=== PATIENT | female | born 1955 | race Caucasian/White ===

== ENCOUNTER 2017-07-28 10:59 | Emergency (ER) | payer OTHER ==
[~2017-07-28] VITALS: Ht 162.6 cm; Wt 151.9 kg
[~2017-07-28 10:59] MED LIST: ALBUTEROL SULF8.5 GM IH; ALLOPURINOL100 MG PO; ASPIRIN EC325 MG PO; BENADRYL25 MG PO; COUMADIN6 MG PO; CYMBALTA60 MG PO; DIPHENHYDRAMINE50 M1 PO; DSS100 MG PO; DULERA 200 MCG/13 GM IH; FERROUS SULFAT140 MG PO; GABAPENTIN300 MG PO; GABAPENTIN600 MG PO; KLOR-CON M2020 MEQ PO; LASIX40 MG PO; LEVOTHROID300 MCG PO; LEVOTHYROXINE200 MCG PO; LISINOPRIL20 MG PO; LOVENOX80 MG SUB-Q; METOLAZONE10 MG PO; NAPROXEN500 MG PO; NEURONTIN600 MG PO; NORCO 5-325 TA1 EACH PO; PACERONE200 MG PO; PRAVASTATIN SOD80 MG PO; PRILOSEC20 MG PO; REGLAN10 MG PO; SEPTRA DS TABL1 EACH PO; TOPROL XL25 MG PO; TRAZODONE HCL100 MG PO
[2017-07-28] MEDS ORDERED: ALLOPURINOL300 MG PO (11:28)
[2017-07-28] MEDS ORDERED: GLIPIZIDE XL5 MG PO (11:28)
[2017-07-28] MEDS ORDERED: AMITRIPTYLINE H25 MG PO (11:29)
== END 2017-07-28 12:02 | disposition home or self-care (01) ==
LOC: ED 10:59
DX: S83.91XA Sprain of unspecified site of right knee, initial encounter (principal); I11.0 Hypertensive heart disease with heart failure; I50.9 Heart failure, unspecified; Z87.891 Personal history of nicotine dependence; Z90.49 Acquired absence of other specified parts of digestive tract; Z98.51 Tubal ligation status; W10.9XXA Fall (on) (from) unspecified stairs and steps, initial encounter
CPT/HCPCS: 73560; 99283

== ENCOUNTER 2021-05-03 13:15 | Inpatient (IN) | payer OTHER, MEDICARE ==
[~2021-05-03] VITALS: Ht 162.6 cm; Wt 130.6 kg
[~2021-05-03 13:15] MED LIST changes: +ALLOPURINOL300 MG PO; +AMITRIPTYLINE H25 MG PO; -ASPIRIN EC325 MG PO; +BAYER CHEWABLE81 MG PO; +GLIPIZIDE XL5 MG PO
--- NOTE | 2021-05-03 20:40 | NUR ---
CALLED AND ASKED TO ORDER A CBC 1/2 AN HOUR TO 1 HOUR AFTER 1ST UNIT PRBC'S IS IN. THIS RN VERIFIED THIS ORDER.
--- NOTE | 2021-05-03 21:00 | NUR ---
SENIOR ADMINISTRATIVE ASSISTANT NOTE. pt ARRIVED TO FLOOR FROM ED VIA ED STRETCHER. pt STAND PIVOT FROM STRETCHER TO BED, STEADY ON FEET. pt ORIENTED TO ROOM, CALL LIGHT IN REACH. LIN ACE ALSO IN ROOM COLLECTING VS. TIAGO COLEMAN IN ROOM REVIEWING HOME MEDS. NO ADDITIONAL NEEDS VERBALIZED AT THIS TIME.
--- NOTE | 2021-05-03 22:21 | NUR ---
PATIENT NEEDED NO SLIDING SCALE INSULIN COVERAGE. PATIENT IS JUST WANTING TO GO TO SLEEP AND SIGNIFICANT OTHER KEEPS TRYING TO PUT PATIENT'S CPAP ON WHILE THIS RN IS TRYING TO ASK QUESTIONS. PATIENT CAME UP ON 2L/NC AND SATS WERE IN THE MID 90'S AND SATS REMAIN IN THE MID TO HIGH 90'S ON CPAP WITH NO O2.DR. FOWLER INFORMED THAT PRBC'S HAVE INFUSED AND CBC IS BEING DRAWN. THIS RN ASKED IF HE WANTED TO HAVE PATIENT TAKE ANY OF HER OWN PM MEDS TONIGHT, AND DOES NOT WANT TO GIVE ANY OF THE PATIENT'S REGULAR MEDS TONIGHT, BUT HAVE PHARMACY DO THE MED REC IN THE MORNING AND DOSING. PATIENT'S SIGNIFICANT OTHER LEAVING FOR THE NIGHT. PATIENT WANTS TO SLEEP. CALL LIGHT IS IN REACH.
--- NOTE | 2021-05-04 00:10 | NUR ---
PATIENT RESTING QUIETLY IN SEMI-FOWLERS POSITION ON CPAP. RESPIRATIONS ARE REGULAR AND EVEN AND PATIENT'S EYES ARE CLOSED. CALL LIGHT IS IN REACH.
[2021-05-04] MEDS ORDERED: JANTOVEN4 MG PO (00:28)
[2021-05-04] MEDS ORDERED: JANTOVEN5 MG PO (00:30)
[2021-05-04] MEDS ORDERED: ALL DAY ALLERGY10 M3 PO (00:32)
[2021-05-04] MEDS ORDERED: LIOTHYRONINE SO5 MCG PO (00:37)
[2021-05-04] MEDS ORDERED: LEVOTHYROXINE137 MCG PO (00:39)
[2021-05-04] MEDS ORDERED: OMEPRAZOLE20 MG PO (00:39)
[2021-05-04] MEDS ORDERED: LIPITOR10 MG PO (00:40)
[2021-05-04] MEDS ORDERED: CENTRUM SILVER1 EAC5 PO (00:41)
[2021-05-04] MEDS ORDERED: B-121000 MC2 PO (00:44)
[2021-05-04] MEDS ORDERED: CYMBALTA60 MG PO (00:45)
[2021-05-04] MEDS ORDERED: CELECOXIB200 MG PO (00:47)
[2021-05-04] MEDS ORDERED: FOLIC ACID1 MG PO (00:47)
[2021-05-04] MEDS ORDERED: MELATONIN10 M2 PO (00:48)
--- NOTE | 2021-05-04 02:05 | NUR ---
VITAL TAKEN AT THIS TIME, PT DENIES NEED TO VOID AT THIS TIME
--- NOTE | 2021-05-04 02:16 | NUR ---
Home CPAP on patient and I have been in twice tonight to adjust mask for leaks.
--- NOTE | 2021-05-04 03:59 | NUR ---
PATIENT RESTING IN SEMI-FOWLERS POSITION, RESPIRATIONS ARE REGULAR AND EVEN, AND EYES ARE CLOSED. CALL LIGHT IS IN REACH.
--- NOTE | 2021-05-04 06:13 | NUR ---
CALLED TO INFORM HIM PATIENT HAD NOT VOIDED SINCE SHE LEFT THE ER, THAT SHE HAS NO URGE TO VOID, AND THAT HER BLADDER SCAN SHOWED 288MLS OF URINE. WANTS PATIENT TO OBSERVED FOR NOW AND WILL EVALUATE LATER THIS MORNING.
--- NOTE | 2021-05-04 07:05 | NUR ---
Report received from Julio César ORDOÑEZ. Pt resting in bed with eyes closed, respirations even and unlabored. No apparent needs at this time, call light in reach, will continue plan of care.
--- NOTE | 2021-05-04 08:15 | NUR ---
CBG checked, 127, no SS insulin provided. Pt resting in bed, states feeling tired this morning and nervous to get out of bed without "working with PT first". Assessment complete, visualized bruises as much as possible with patient unable to roll side to side at this time. Breakfast ordered, no other needs at this time. Call light in reach.
--- NOTE | 2021-05-04 08:29 | NUR ---
Patient just recieved breakfast. Patient would like an independent bed bath. Bed bath wipes will be provided. The patient would like to eat breakfast first. Call light is in reach and there are no other requests at this time.
[2021-05-04] MEDS ORDERED: NITROFURANTOIN100 M1 PO (09:12)
[2021-05-04] MEDS ORDERED: FUROSEMIDE80 MG PO (09:19)
[2021-05-04] MEDS ORDERED: AMITRIPTYLINE H50 MG PO (09:31)
--- NOTE | 2021-05-04 10:15 | NUR ---
Pt up to BSC, weak with heavy 2P pivot transfer. Full skin assessment complete at this time, photo consent obtained and pictures placed in chart of large bruise on R hip/buttock, small skin tear to R buttock (allevyn placed), small skin tear to mid back (allevyn placed). Pt back to bed, eating breakfast with visitor at bedside, attentive to patient and engaged in care. LIN Trejo in room, no other needs from this RN at this time
--- NOTE | 2021-05-04 10:18 | NUR ---
Patient voided 350 ml. RN talked with patient and got some information. Vitals, I&Os are complete. Patient is visiting with friend. Patient would like coffee and this will be provided. There are no other requests and the call light is in reach.
--- NOTE | 2021-05-04 11:33 | NUR ---
medications reconciled using RX records and patient interview. Patient is chronically anticoagulated with warfarin with an INR goal range 2.5-3.5
--- NOTE | 2021-05-04 12:00 | NUR ---
IN ROOM TO DO PATIENTS BLOOD SUGAR. PATIENT SITTING IN CHAIR WAITING FOR LUNCH. CALL LIGHT IN REACH. NO FURTHER NEEDS AT THIS TIME.
--- NOTE | 2021-05-04 13:36 | NUR ---
Vitals, I&Os are complete. Patient did a requested independent bed bath. Patient is using chapstick, saying her lips are dry, but he is drinking some water. She said she lost her appitite because all she feels is pain. Patient has not voided or had a BM in about 3 and a 1/2 hours. Patient is asking about pain meds. There are no other requests. Call light is in reach.
--- NOTE | 2021-05-04 15:45 | NUR ---
Pt requests PRN medication for 8/10 generalized and back pain, 5mg oxycodone administered. Discussed with patient her care goals, including pain control, improved physical strength and mobility, and possible continuation of ABX due to past UTI. Pt is agreeable to POC, all questions answered. MD notified regarding this concerns, new orders received.
--- NOTE | 2021-05-04 17:20 | NUR ---
Scheduled medications administered, lidocaine patch applied to lower back for pain. Pt states having little appetite and denies wanting anything at this time, encouraged to eat with ABX and pain pills to avoid nausea. Pt agrees. Friend at bedside, engaged in care, attentive to patient and knowledgeable about patient's medications and condition. No other needs at this time, call light in reach.
--- NOTE | 2021-05-04 18:00 | NUR ---
PATIENT SITTING UP IN BED WATCHING TV, FRIEND IN ROOM. VITALS AND I&O'S CHARTED. CALL LIGHT IN REACH. NO FURTHER NEEDS AT THIS TIME.
--- NOTE | 2021-05-04 19:02 | EKG ---
[facility] [address] [facility] [address] [place], [place] [address] Signed Normal sinus rhythm Nonspecific intraventricular block Nonspecific T wave abnormality Abnormal ECG No previous ECGs available Confirmed by NICOLA FOWLER MD ([id number]) on 05/04/2021 7:02:35 PM Electronically Signed By: NICOLA FOWLER MD 05/04/211901 PATIENT NAME: MERLINCHERELLE Karthik Electrocardiogram DATE OF : 51 PHYSICIAN: NICOLA FOWLER MD REPORT #: [id number] REPORT IS CONFIDENTIAL AND NOT TO BE RELEASED WITHOUT AUTHORIZATION
--- NOTE | 2021-05-04 19:30 | NUR ---
PATIENT SITTING IN BED WATCHING TV. PATIENT'S FRIEND IS IN THE ROOM VISITING. PATIENT HAS NO CARE NEEDS AT THIS TIME. REPORT GIVEN TO THIS RN BY TIAGO ANDRES.
--- NOTE | 2021-05-04 20:30 | NUR ---
PATIENT IS HAVING 04/18 RIGHT HIP AND LOWER BACK PAIN. 10MG PO OXYCODONE GIVEN. PATIENT'S FRIEND KATI HELPED THIS RN PULL THE PATIENT UP IN BED. PM MEDS GIVEN. WATER GLASS FULL. VS STABLE. NO OTHER CARE NEEDS AT THIS TIME. CALL LIGHT IS IN REACH.
--- NOTE | 2021-05-04 23:35 | NUR ---
IN TO CHECK ON PT, PT DENIES NEED TO VOID AT THIS TIME, RN AWARE
--- NOTE | 2021-05-04 23:59 | NUR ---
PT ADMITTED TO ROOM 125 FROM ED VIA W/C, CARRIED IN MOTHERS ARMS. CALM, QUIET. ED TELE IN PLACE, RESP 22, PULSE 148, SATS 95% ROOM AIR. SLIGHT MOTTLING OF HIPS/LEGS NOTED, MOTHER STATED, 'ITS ALWAYS LIKE THAT'
--- NOTE | 2021-05-05 00:32 | NUR ---
PATIENT'S RT HIP AND LOW BACK PAIN HAS RETURNED TO 8/10 AND 10MG PO OXYCODONE GIVEN. PATIENT HAS NOT VOIDED YET THIS SHIFT AND BLADDER SCAN SHOWS 257MLS AND PATIENT DOES NOT FEEL THE NEED TO VOID. PATIENT HAS NO OTHER CARE NEEDS AT THIS TIME. CALL LIGHT IS IN REACH.
--- NOTE | 2021-05-05 00:50 | NUR ---
pT UP TO BEDSIDE AND BACK TO BED COMMODE 2PA AND FWW, THIS RN AND LIN ACE ASSISTING. PATIENT PULLED UP IN BED AND POSITIONED TO COMFORT. PATIENT VOIDED 300MLS. LIGHTS WERE TURNED DOWN AND CALL LIGHT IS IN REACH.
--- NOTE | 2021-05-05 02:39 | NUR ---
PATIENT RESTING QUIETLY IN SEMI-FOWLERS POSITION, RESPIRATIONS ARE REGULAR AND EVEN AND CALL LIGHT IS IN REACH.
--- NOTE | 2021-05-05 04:30 | NUR ---
PATIENT RESTING QUIETLY IN SEMI-FOWLERS POSITION, RESPIRATIONS ARE REGULAR AND EVEN, PATIENT REMAINS OFF CPAP BY HER CHOICE, EYES ARE CLOSED, CALL LIGHT IS IN REACH.
--- NOTE | 2021-05-05 06:21 | NUR ---
PATIENT HAVING 4/10 RIGHT HIP AND BACK PAIN AND WANTED PAIN MEDICATION AND WAS GIVEN 10MG PO OXYCODONE. AM ASSESSMENT COMPLETE. PATIENT INFORMED THIS RN SHE SLEPT PRETTY WELL EVEN THOUGH SHE DID NOT USE HER CPAP LAST NIGHT AND SLEPT SITTING UP IN BED INSTEAD. PATIENT HAVING MORE TROUBLE COMPLETING HER THOUGHTS THIS AM JUST LIKE YESTERDAY. AND CAN'T COMPLETE HER SENTENCES. PATIENT CURRENTLY PUTTING SEALANT ON HER DENTURES AND TRYING TO PUT THEM IN FOR THE MORNING. PATIENT'S CALL LIGHT IS IN REACH AND SHE HAS NO OTHER CARE NEEDS AT THIS TIME.
--- NOTE | 2021-05-05 08:53 | NUR ---
Scheduled medications administered, assessment complete. Pt drowsy this am, awakens to voice but quickly returns to sleep. States pain is 4-5/10 at this time, new lidocaine patch applied, discussed with patient importance of both pain control and also remaining alert. Pt agreeable to this. Allevyn to R hip and mid back C/D/I, pt states no needs at this time, breakfast in room. Call light in reach.
--- NOTE | 2021-05-05 10:30 | NUR ---
This RN heard patient calling out for help, entered room to find her gripping bedside rails and gasping that she "couldn't breathe", immediately checked spo2, 92%, and placed on 2L NC o2 for patient comfort. VSS, lung sounds clear, pt sitting upright and states no chest pain or discomfort. Pt then denies any issues, noted her skin to be cool and somewhat moist so CBG checked and WNL. TIAGO Ruiz in room to assist, Dr Vogel notified.
--- NOTE | 2021-05-05 10:39 | NUR ---
CALLED TO REPORT CHANGE IN PATIENT LOC, PT VERY SOMNOLENT ALL MORNING. SHE WOKE AND SCREAMED FOR HELP, BLAINE PRIMARY RN INTO ROOM, REQUESTED ASSISTANCE FROM THIS RN. V/S STABLE, PT SHORT OF BREATH 91% OXYGEN SATURATION ON ROOM ARE, PLACED ON 2L OXYGEN 96% OXYGEN SATURATION ON 2L N.C., BLOOD SUGAR CHAECK AT BEDSIDE 152. PT REPORTS NO CHEST PAIN SHE REPORTED NAUSEA AND WAS GIVEN ZOFRAN PRN. SKIN COOL AND MOIST.
--- NOTE | 2021-05-05 11:15 | NUR ---
IN ROOM WITH PT TO GET PATIENT UP TO BSC. PATIENT UP, 2PA FWW. PATIENT THEN TO CHAIR AFTER BSC, 2PA FWW. PATIENT TOLERATED IT WELL . LINENS CHANGED. ADRIANO CARE DONE. CALL LIGHT IN REACH. NO FURTHER NEEDS AT THIS TIME. RN DID VITALS.
--- NOTE | 2021-05-05 11:20 | NUR ---
Pt continues to be somnolent, VSS. Monitoring low urine output frequency, pt denies urge to void with several attempts to have her use commode. Pt did not eat breakfast as she states was too tired at this time. No needs currently. Call light in reach, will continue to monitor
--- NOTE | 2021-05-05 13:45 | NUR ---
Pt's medications administered, pt sitting up in chair and awakens to voice to take pill, tolerates well. Friend Chelsi at bedside, updated regarding pt condition and this morning's events, discussed plan of care and Chelsi states patient is more confused and drowsy than baseline. MD notified of this and new orders received
--- NOTE | 2021-05-05 16:51 | NUR ---
Scheduled medications administered, pt still up in chair with friend Chesli at bedside. Pt still somnolent, but able to remain awake to answer several questions. Reports pain to be 5/10, PRN tylenol administered. Dinner has been ordered. Discussed plan for evening and pt would like to remain in chair until evening VS and return to bed then. Call light in reach, no other needs.
--- NOTE | 2021-05-05 18:25 | NUR ---
PATIENT SITTING UP IN BED WATCHING TV, VISITOR IN ROOM. VITALS AND I&O'S CHARTED. CALL LIGHT IN REACH. NO FURTHER NEEDS AT THIS TIME.
--- NOTE | 2021-05-05 18:56 | NUR ---
Pt meets urine criteria at this time with moderate incontinent void, encouraged to take in PO food and fluid as she has low intake and has to be strongly encouraged to use the commode.
--- NOTE | 2021-05-05 19:49 | NUR ---
PATIENT SITTING IN BED WATCHING TV. PATIENT HAS NO CURRENT CARE NEEDS AND HER CALL LIGHT IS IN REACH.
--- NOTE | 2021-05-05 20:27 | NUR ---
PATIENT HAVING 4/10 RT HIP AND BACK PAIN. TYLENOL GIVEN. PATIENT'S DENTURES OUT TO SOAK. LIGHTS TURNED DOWN AT HER REQUEST. CALL LIGHT IS IN REACH. ASSESSMENT COMPLETE.
--- NOTE | 2021-05-05 22:30 | NUR ---
PATIENT CONTINUES TO WATCH TV AT THIS TIME FROM BED. PATIENT DENIES THE NEED FOR ANY CARES AT THIS TIME. CALL LIGHT IS IN REACH.
--- NOTE | 2021-05-06 00:27 | NUR ---
PATIENT DOZING IN BED WATCHING TV. PATIENT DENIES THE NEED FOR ANYTHING AT THIS TIME. CALL LIGHT IS IN REACH.
--- NOTE | 2021-05-06 01:39 | NUR ---
ASSISTED PATIENT IN PUTTING ON HER CPAP MACHINE SO SHE COULD GO TO SLEEP. PATIENT'S LIGHTS TURNED DOWN AND CALL LIGHT IS IN REACH.
--- NOTE | 2021-05-06 01:50 | NUR ---
CALLED AND INFORMED HIM PATIENT HAS NOT VOIDED TONIGHT ON THIS SHIFT. INFORMED THIS RN TO "JUST WATCH HER FOR NOW." NO NEW ORDERS GIVEN AND CALL LIGHT IS IN PATIENT'S REACH.
--- NOTE | 2021-05-06 04:38 | NUR ---
PATIENT UP TO THE BEDSIDE COMMODE AND BACK TO BED WITH 2PA AND FWW. PATIENT HAD A SMALL BM AND VOIDED 500MLS. PATIENT SLEPT ABOUT 2 HOURS ON HER CPAP AND INFORMED THIS RN SHE HAD A, "GOOD NAP". PATIENT GETTING HER DENTURES IN WITH HELP FROM LIN PETERSON. CALL LIGT IS IN REACH.
--- NOTE | 2021-05-06 04:46 | NUR ---
2pa TO BEDSIDE COMMODE USING WALKER. PATIENT IS BACK IN BED. V/S AND I&O DONE AND RECORDED. CALL LIGHT WITHIN REACH.
--- NOTE | 2021-05-06 06:05 | NUR ---
PATIENT'S AM MEDS GIVEN AND PATIENT HAD NO OTHER NEEDS. CALL LIGHT IS IN REACH.
--- NOTE | 2021-05-06 07:10 | NUR ---
Report received from Julio César ORDOÑEZ. Pt resting in bed with eyes closed, even and unlabored respirations. No needs apparent at this time, call light in reach. Will continue plan of care.
--- NOTE | 2021-05-06 08:47 | NUR ---
PATIENT UP TO CHAIR, 2PA FWW. COULD HAVE TRAMSFERED WITH 1PA BUT PATIENT FELT UNCOMFORTABLE WITH JUST ONE PERSON. FRESH ICE WATER GIVEN. CALL LIGHT IN REACH. NO FURTHER NEEDS AT THIS TIME.
--- NOTE | 2021-05-06 09:50 | NUR ---
Scheduled medications and PRN tylenol administered for pt's back pain. New lidocaine patch applied. Pt is alert and oriented, improved significantly from day before (05/05). Pt prepares to work with physical therapist and walks in hallway. Skin, bruises visualized, allevyns over skin tears C/D/I, skin condition unchanged at this time.
--- NOTE | 2021-05-06 10:32 | NUR ---
PATIENT SITTING IN CHAIR WATCHING TV, VISITOR IN ROOM. PATIENT WANTS TO SHOWER IN A LITTLE BIT AND WANTS VISITOR TO HELP HER. WILL SET BATHROOM UP FOR SHOWER. CALL LIGHT IN REACH. NO FURTHER NEEDS AT THIS TIME.
[2021-05-06] MEDS ORDERED: AMOXICILLIN500 MG PO (12:11)
[2021-05-06] MEDS ORDERED: KLOR-CON M2020 MEQ PO (12:12)
[2021-05-06] MEDS ORDERED: FUROSEMIDE80 MG PO (12:12)
[2021-05-06] MEDS ORDERED: MELATONIN10 M2 PO (12:13)
--- NOTE | 2021-05-06 12:30 | NUR ---
Rounded on patient who is sitting up in chair, states no needs at this time. Her friend Chelsi is here to provide ride home when discharged. A+O, states no pain, call light in reach.
--- NOTE | 2021-05-06 14:00 | NUR ---
Discharge teaching provided to patient and her friend Chelsi who both verbalize understanding and have no questions. Vital signs stable, alert and oriented, and IV removed WNL. All belongings returned to patient, discharged via wheelchair with her friend Chelsi to provide ride home.
== END 2021-05-06 14:22 | disposition home or self-care (01) | DRG 604 ==
LOC: ED 13:15 → MS 19:05
PROVIDERS: ADMIT Internal Medicine; ATTEND Internal Medicine
PROC: 30233N1 Transfusion of Nonautologous Red Blood Cells into Peripheral Vein, Percutaneous Approach (ICD-10-PCS; principal; 2021-05-03)
DX: S70.01XA Contusion of right hip, initial encounter (principal); K72.00 Acute and subacute hepatic failure without coma; S22.089A Unspecified fracture of T11-T12 vertebra, initial encounter for closed fracture; D62 Acute posthemorrhagic anemia; I13.0 Hypertensive heart and chronic kidney disease with heart failure and stage 1 through stage 4 chronic kidney disease, or unspecified chronic kidney disease; I50.32 Chronic diastolic (congestive) heart failure; N39.0 Urinary tract infection, site not specified; N17.9 Acute kidney failure, unspecified; W18.30XA Fall on same level, unspecified, initial encounter; I27.20 Pulmonary hypertension, unspecified; M79.7 Fibromyalgia; G47.33 Obstructive sleep apnea (adult) (pediatric); E11.42 Type 2 diabetes mellitus with diabetic polyneuropathy; R29.6 Repeated falls; E78.5 Hyperlipidemia, unspecified; E11.22 Type 2 diabetes mellitus with diabetic chronic kidney disease; K76.0 Fatty (change of) liver, not elsewhere classified; Z20.822 Contact with and (suspected) exposure to COVID-19; B95.2 Enterococcus as the cause of diseases classified elsewhere; B96.20 Unspecified Escherichia coli [E. coli] as the cause of diseases classified elsewhere; K21.9 Gastro-esophageal reflux disease without esophagitis; G89.4 Chronic pain syndrome; N18.9 Chronic kidney disease, unspecified; R41.0 Disorientation, unspecified; R26.89 Other abnormalities of gait and mobility; T43.015A Adverse effect of tricyclic antidepressants, initial encounter; E03.9 Hypothyroidism, unspecified; Y92.239 Unspecified place in hospital as the place of occurrence of the external cause; Z79.01 Long term (current) use of anticoagulants; Z95.2 Presence of prosthetic heart valve; Z87.891 Personal history of nicotine dependence; Z90.49 Acquired absence of other specified parts of digestive tract; Z98.890 Other specified postprocedural states; Z98.51 Tubal ligation status; Z79.84 Long term (current) use of oral hypoglycemic drugs; Z79.82 Long term (current) use of aspirin; Z79.899 Other long term (current) drug therapy; Z91.041 Radiographic dye allergy status
CPT/HCPCS: 36430; 70450; 71045; 74176; 74177; 80053; 80500; 81001; 82553; 83735; 84484; 85025; 85610; 85730; 86850; 86900; 86901; 86922; 93005; 93010; 97110; 97162; 99285-25; A9270; J2270; J2405; J7030; P9016; U0003

== ENCOUNTER 2022-03-03 17:54 | Inpatient (IN) | payer MEDICARE, OTHER ==
[~2022-03-03] VITALS: Ht 162.6 cm; Wt 109.1 kg
[~2022-03-03 17:54] MED LIST changes: +ALL DAY ALLERGY10 M3 PO; +AMITRIPTYLINE H50 MG PO; +AMOXICILLIN500 MG PO; +B-121000 MC2 PO; +CELECOXIB200 MG PO; +CENTRUM SILVER1 EAC5 PO; +FOLIC ACID1 MG PO; +FUROSEMIDE80 MG PO; +JANTOVEN4 MG PO; +JANTOVEN5 MG PO; +LEVOTHYROXINE137 MCG PO; +LIOTHYRONINE SO5 MCG PO; +LIPITOR10 MG PO; +LOVENOX40 MG/0.4; +MELATONIN10 M2 PO; +NITROFURANTOIN100 M1 PO; +OMEPRAZOLE20 MG PO
--- NOTE | 2022-03-03 20:40 | NUR ---
PT TO FLOOR FROM ED VIA STRETCHER WITH HOUSE SUP RN. PT ALERT AND ORIENTED. ABLE TO TRANSFER SELF FROM STRETCHER TO BSC TO VOID 400 ML CLEAR YELLOW URINE. ABLE TO DO OWN ADRIANO CARE. BACK TO BED. DENIES SOB WITH ACTIVITY. DOES REPORTS RIGHT SIDE CHEST PAIN WITH ACTIVITY AND DEEP BREATHING. SpO2 LOW 80'S ON RA AFTER ACTIVITY. 2L/NC PLACED. SpO2 100% AFTER A FEW MINUTES OF RECOVERY. OXYGEN REMOVED PER REQUEST. FRIEND IN ROOM TO BRING PERSONAL WALKER AND CPAP MACHING. FEED PREPARATION OPERATOR IN ROOM TO DO ADMISSION.
[2022-03-03] MEDS ORDERED: SOAANZ40 MG PO (20:52)
--- NOTE | 2022-03-03 22:00 | NUR ---
ADMISSION ASSESSMENT COMPLETE. SCHEDULED MEDS ADMIN PER EMAR. PT DENIES PAIN, NAUSEA, OR SOB. PT ON RA. SpO2 95%. RESPIRATIONS EVEN. EDEMA NOTED BLE. PT WITH MULTIPLE BRUISES OF VARIOUS SIZES AND STAGES OF HEALING DUE TO CHRONIC COUMADIN USE. REDDENED PANNUS AREA NOTED, PT STATES TREATING AT HOME WITH NYSTATIN. NIO PLACED FOR HOSPITAL EQUIVALENT. PT HUNGRY AND THIRSTY. DISCUSSED ORDERED DIET AND FLUID RESTRICTION. PT RECEPTIVE. JELLO AND ICE WATER PROVIDED. PT ORIENTED TO ROOM AND NURSE CALL LIGHT. DENIES QUESTIONS OR CONCERNS. CALL LIGHT IN REACH.
--- NOTE | 2022-03-04 00:06 | NUR ---
call LIGHT ANSWERED. PATIENT GOT UP TO USE THE BATHROOM. 1SBA. OWN WALKER. PATIENT VOIDED 450ML SLIGHTLY CONCENTRATED. PATIENT IS BACK IN BED. FEW ICE CHIPS PROVIDED PER PRIMARY RN. FEW BLANKETS TAKEN OFF PATIENT STATED SHE WAS FREEZING AWHILE AGO BUT NOW SHE IS WARM. NO OTHER NEEDS AT THIS TIME. CALL LIGHT AND SIDE TABLE CLOSED BY.
--- NOTE | 2022-03-04 02:04 | NUR ---
VS AND I&O COMPLETE. SpO2 MID 80'S ON RA. PT NOT WEARING CPAP "IT IS TOO UMCOMFORTABLE TONIGHT" 2L/NC PLACED. SpO2 MID 90'S. SCHEDULED MEDS ADMIN. PT UP TO BR WITH SBA AND PERSONAL WALKER TO VOID. GAIT STEADY. ABLE TO DO OWN ADRIANO CARE. BACK TO BED, SANTI WELL. REPORTS RIGHT SIDE CHEST PAIN IS BECOMING MORE STERNAL. DENIES RADIATING PAIN INTO ARMS OR JAW. DENIES SOB. REQUESTING MORE WATER, EDUCATION PROVIDED. PT RECEPTIVE. DENIES FURTHER NEEDS. CALL LIGHT IN REACH.
--- NOTE | 2022-03-04 03:58 | NUR ---
ALL LIGHT ANSWERED. PT UP TO BR WITH FWW AND SBA TO VOID AND SOAK DENTURES. BACK TO BED. REPORTS PAIN IN RIGHT SIDE CHEST/STERNUM 04/09. DENIES SOB. DENIES RADIATING PAIN. REPORTS IT FEELS LIKE THE SAME PAIN THAT SHE CAME TO THE ED WITH THAT SHE HAS NOT HAD RELIEF FROM. DR. FOWLER NOTIFIED. NEW TELEPHONE ORDERS RECEIVED FROR PAIN CONTROL MEASURES. VERIFIED WITH READ BACK METHOD. IN TO UPDATE PT. PT REPORTS PAIN MAY BE RELATED TO A FALL SHE HAD APPROX TWO WEEKS AGO AND/OR HER FIBROMYALGIA. OFFERED HEAT/COLD, PT REFUSED. PRN FOR PAIN ADMIN PER EMAR. NO FURTHER NEEDS. CALL LIGHT IN REACH.
--- NOTE | 2022-03-04 06:53 | NUR ---
VS AND I&O COMPLETE. DAILY WEIGHT OBTAINED. PT REPORTS RIGHT CHEST/STERNAL PAIN IMPROVED AFTER PRN ADMIN. FEW ICE CHIPS PROVIDED. PT SITTING ON THE SIDE OF THE BED MAKING PERSONAL CALLS. NO FURTHER NEEDS. CALL LIGHT IN REACH.
--- NOTE | 2022-03-04 07:10 | NUR ---
bedside report from Regine RN, pt sitting up, denies needs, call light in reach.
[2022-03-04] MEDS ORDERED: TORSEMIDE20 MG PO (07:25)
[2022-03-04] MEDS ORDERED: LEVOTHYROXINE150 MCG PO (07:26)
[2022-03-04] MEDS ORDERED: AMITRIPTYLINE100 MG PO (07:27)
--- NOTE | 2022-03-04 08:57 | NUR ---
in with pt, home cytomel 10 mg given this am from home. ericka from dc plan in at this time. visitor in room.
--- NOTE | 2022-03-04 09:00 | NUR ---
Spoke with pt and her friend Chelsi. Pt lives alone and denies needs. Pt lives in 1 story home with a ramp. She uses walker and a CPAP. She denies needs and plans on dc to home when she is feeling better. Per nursing staff pt is a heavy drinker. Home on dc.
--- NOTE | 2022-03-04 10:39 | NUR ---
PATIENT SITTING UP IN EDGE OF BED, VISITOR IN ROOM. VITALS AND I&O'S CHARTED. PATIENT SAID SHE WOULD DECIDE LATER ON A SHOWER. CALL LIGHT IN REACH. NO FURTHER NEEDS AT THIS TIME.
--- NOTE | 2022-03-04 11:06 | NUR ---
discussed chf printed education and low sodium. echo complete at bedside. po meds kcl and mg given and educated.
--- NOTE | 2022-03-04 12:55 | NUR ---
pt back to bed after xray in dept. call light in reach.
--- NOTE | 2022-03-04 13:09 | NUR ---
pt sitting up at bedside - following water fluid restriction. pain pill po given for chest pain - that continues after fall at home.
--- NOTE | 2022-03-04 13:33 | NUR ---
PT ALERT, ORIENTED AND VISITING WITH A FRIEND KATI. PT WAS ALITTLE CHILLED, TURNED UP TEMP IN RM. GAVE BLESSING AND G.POST. WILL FOLLOW
--- NOTE | 2022-03-04 19:15 | NUR ---
bedside report to suleiman woodson, cont. fluid restrictions - i/o complete.
--- NOTE | 2022-03-04 19:34 | NUR ---
REPORT RECEIVED FROM DAY SHIFT RN. PT LYING IN BED ALERT AND ORIENTED. DENIES NEEDS AT THIS TIME. WHITE BOARD UPDATED. CALL LIGHT IN REACH.
--- NOTE | 2022-03-04 21:35 | NUR ---
PT UP TO BR WITH SBA AND FWW TO VOID. AT SINK FOR PM CARES. BACK TO BED, SANTI WELL. DENIES SOB. PRN FOR PAIN GIVEN FOR 6/10 RIGHT SIDE CHEST PAIN. PT DENIES NAUSEA. SCHEDULED MEDS ADMIN PER EMAR. EVENING ASSESSMENT COMPLETE. ASSISTED TO PLACE HOME CPAP. PT DENIES QUESTIONS OR CONCERNS. CALL LIGHT IN REACH.
--- NOTE | 2022-03-04 23:21 | NUR ---
PT RESTING IN BED WITH EYES CLOSED. CPAP IN PLACE. RESPIRATIONS EVEN. CALL LIGHT IN REACH.
--- NOTE | 2022-03-05 01:49 | NUR ---
PT RESTING WITH CPAP ON. SPOT CHECK Spo2 93%. HR 80'S. ASSISTED PT WITH BLANKETS. NO FURTHER NEEDS.
--- NOTE | 2022-03-05 04:30 | NUR ---
PT RESTING IN BED WITH EYES CLOSED. CPAP IN PLACE. RESPIRATIONS EVEN. CALL LIGHT IN REACH.
--- NOTE | 2022-03-05 06:03 | NUR ---
PT UP TO BR WITH SBA AND FWW TO VOID 300 ML CONCENTRATED URINE. AT SINK FOR AM CARES. DAILY WEIGHT OBTAINED. BACK TO BED, SANTI WELL. PT DENIES SOB WITH AMB. GAIT STEADY. VS AND I&O COMPLETE. SCHEDULED MEDS ADMIN PER EMAR. PRN ADMIN FOR RIGHT SIDE CHEST PAIN. PT DENIES FURTHER NEEDS. CALL LIGHT IN REACH.
--- NOTE | 2022-03-05 08:13 | NUR ---
MORNING ASSESSMENT COMPLETE. PT SITTING AT EDGE OF BED, EATING BREAKFAST. LUNG SOUNDS CLEAR, DIM AT BASES. 2+ PITTING EDEMA TO BILATERAL LOWER EXT. STATES PAIN IN RIBS IS 5/10, THOUGH DENIES NEED FOR INTERVENTION AT THIS TIME. DENIES FURTHER NEEDS AT THIS TIME. CALL LIGHT WITHIN REACH.
--- NOTE | 2022-03-05 09:24 | NUR ---
PT IN RECLINER, DENIES NEEDS AT THIS TIME. CALL LIGHT IN REACH.
--- NOTE | 2022-03-05 09:52 | NUR ---
PT C/O 03/09 RIGHT RIB PAIN, PRN OXYCODONE GIVEN. DENIES FURTHER NEEDS AT THIS TIME. CALL LIGHT IN REACH.
--- NOTE | 2022-03-05 10:40 | NUR ---
Spoke with Yohana. States she is feeling better today. Cont. with some shoulder, chest, and rib pain. Over all she is feeling better.
--- NOTE | 2022-03-05 10:40 | NUR ---
PT ALERT, ORIENTED AND SITTING IN CHAIR USING [employer] PT SLEPT WELL, SHARED HOW QUIET IT IS AT NIGHT. VERY PLEASED WITH CARE. GAVE BLESSING, WILL FOLLOW NEEDED
--- NOTE | 2022-03-05 11:41 | NUR ---
PT SITTING UP IN RECLINER, VISITING WITH FAMILY. CALL LIGHT IN REACH.
--- NOTE | 2022-03-05 11:43 | EKG ---
[facility] [address] [place] [address] Signed Sinus rhythm with 1st degree AV block Nonspecific intraventricular block Minimal voltage criteria for LVH, may be normal variant ( [place] product ) Cannot rule out Anterior infarct , age undetermined Abnormal ECG When compared with ECG of 08-JAN-2022 10:37, T wave inversion now evident in Lateral leads Confirmed by NICOLA FOWLER MD ([id number]) on 03/05/2022 11:43:11 AM Electronically Signed By: NICOLA FOWLER MD 03/05/22 1143 PATIENT NAME: CHERELLE BOYER Electrocardiogram DATE OF : 51 PHYSICIAN: NICOLA FOWLER MD REPORT #: [id number] REPORT IS CONFIDENTIAL AND NOT TO BE RELEASED WITHOUT AUTHORIZATION
--- NOTE | 2022-03-05 12:02 | NUR ---
PT EATING LUNCH, STATES PAIN HAS IMPROVED TO 2/10. DENIES FURTHER NEEDS AT THIS TIME. CALL LIGHT IN REACH.
--- NOTE | 2022-03-05 14:06 | NUR ---
PT SITTIN GUP IN BED, PT IN ROOM. CLEAR, DIM LUNG SOUNDS, 2+ PITTING EDEMA TO BILAT LOWER EXT. DENIES NEEDS AT THIS TIME. CALL LIGHT IN REACH.
--- NOTE | 2022-03-05 16:04 | NUR ---
ASSISTED PT TO RESTROOM AND BACK TO SITTING ON EDGE OF BED. PT REQUESTED [place] FOR LEFT SHOULDER AND RIBS, ADMINISTERED. PT DENIES FURTHER NEEDS AT THIS TIME. CALL LIGHT IN REACH.
--- NOTE | 2022-03-05 17:37 | NUR ---
PT C/O 03/09 RIB PAIN, PRN OXYCODONE GIVEN. PT DENIES FURTHER NEEDS AT THIS TIME. CALL LIGHT IN REACH.
--- NOTE | 2022-03-05 19:22 | NUR ---
Pt sitting edge of bed, on room air, no c/o pain, pleasant and coop, aware of fluid restriction.
--- NOTE | 2022-03-05 20:11 | NUR ---
PT ON ROOM AIR, HOME CPAP AT BEDSIDE, SL LAC PATENT, SBA/ REPOSITIONS SELF IN BED, AWARE OF FLUID RESTRICTION, COOPERATIVE. PLEASANT AND COOPERATIVE CALL LIGTH AT HANDS REACH
--- NOTE | 2022-03-05 20:22 | NUR ---
lungs crackles at bases, aortic valve murmur present. red under panus and groin area, desenx applied. edema 1+ LE up to outer thigh areas bilat. moves extremities well, tender. elevated,
--- NOTE | 2022-03-05 23:17 | NUR ---
USING CPAP, NO DISTRESS, NO C/O PAIN. RT WAS IN ROOM EARLIER ASSESSING HOME CPAP FOR USE
--- NOTE | 2022-03-06 01:20 | NUR ---
pt awakes easily,, no distress, using CPAP, call light at hands reach
--- NOTE | 2022-03-06 03:20 | NUR ---
awakes easily, no c/o pain at this time. on room air. turns and repositions self in bed
--- NOTE | 2022-03-06 06:31 | NUR ---
uP TO BR SBA, VOIDED LIGHT BARON COLORED URINE. BACK TO BED, TOLERATED WELL, NO C/O PAIN. TOOK MEDS W/O PROBLEMS. AWARE OF FLUID RESTRICTION, TOLERATING WELL AND WITHN LIMITS. SL PATENT. LUNGS DIM AT BASIS, ON ROOM AIR. DAILY STANDING WEIGHT 116.4KG. SLEPT THIS SHIFT, USED HOME CPAP, PLEASANT AND COOP. NO C/O EMESIS
--- NOTE | 2022-03-06 08:27 | NUR ---
MORNING ASSESSMENT COMPLETE. 2+ PITTING EDEMA NOTED FROM HIPS TO ANKLES, BILAT LOWER EXT. O2 SAT 97% RA, CLEAR DIM LUNG SOUNDS. PT DENIES NEEDS AT THIS TIME, CALL LIGHT IN REACH.
--- NOTE | 2022-03-06 09:46 | NUR ---
PT SITTING ON EDGE OF BED, C/O 04/09 LEFT SHOULDER AND RIB PAIN WITH MOVEMENT, GIVEN 5MG OXYCODONE. PT DENIES FURTHER NEEDS AT THIS TIME. CALL LIGHT IN REACH.
--- NOTE | 2022-03-06 10:00 | NUR ---
Spoke with Yohana. She states she is feeling better today. Cont. with concerns for falls. Has education packet and is familiar with STOP LIGHT protocol. Pt states she has a scale in the home. She states she goes to OP 2 x per week for PT and they were getting ready to start OT for her. Let her know I will pass this on to Dr. Vogel as she would like to continue. She denies other needs. PT was in the room and had just finished sitting exercises with her. Pt states she was a little sob, but not as much as when she walkes with PT>
--- NOTE | 2022-03-06 10:42 | NUR ---
PT SITTING IN RECLINER, STATES PAIN HAS IMPROVED SINCE PRN MEDICATION. DENIES NEEDS AT THIS TIME. CALL LIGHT IN REACH.
--- NOTE | 2022-03-06 11:44 | NUR ---
PT SITTING IN RECLINER, DENIES NEEDS AT THIS TIME. CALL LIGHT IN REACH.
--- NOTE | 2022-03-06 12:59 | NUR ---
PT SITTING IN RECLINER, VISITOR IN ROOM. DENIES NEEDS AT THIS TIME. CALL LIGHT IN REACH.
--- NOTE | 2022-03-06 13:06 | NUR ---
PT ALERT, ORIENTED AND UP WITH FWW HEADED TO BR. SAID SHE WAS FEELING BETTER PLANS TO STAY ONE MORE DAY. SEEMS PLEASED WITH CARE. GAVE ENCOURAGEMENT AND BLESSING. WILL FOLLOW
--- NOTE | 2022-03-06 13:52 | NUR ---
PT SITTING UP IN RECLINER, VISITOR AT BEDSIDE, ASSISTED WITH SHOWER. PT DENIES FURTHER NEEDS AT THIS TIME. CALL LIGHT WITHIN REACH.
--- NOTE | 2022-03-06 17:04 | NUR ---
PT SITTING IN RECLINER VISITING. DENIES NEEDS AT THIS TIME. CALL LEESA SANTIAGO.
--- NOTE | 2022-03-06 19:40 | NUR ---
bedside report from samanthaeriee rn, pt denies needs, call light in reach.
--- NOTE | 2022-03-06 22:15 | NUR ---
pt adjusting cpap mask - seal difficult - pt taking it off for a break. denies other needs. call light in reach
--- NOTE | 2022-03-07 00:43 | NUR ---
pt resting eyes closed, resp even, call light in reach.
--- NOTE | 2022-03-07 04:58 | NUR ---
pt had uneventful night, cpap occasionally - po pain med and asper cream at bedtime, poss dc to home today.
--- NOTE | 2022-03-07 05:17 | NUR ---
in for pt vitals, sleepy, reports feeling better. Lab in for am draw.
--- NOTE | 2022-03-07 07:21 | NUR ---
REPORT RECEIVED FROM TIAGO TOBIN. PT RESTING IN BED ON BACK. PT REPORTS 3/10 PAIN IN RIGHT SIDE AND SHOULDER THAT IS "NOT THAT BAD." PT DENIES NEED FOR PAIN MEDICATION AT THIS TIME. NO ADDITIONAL REQUESTS OR COMPLAINTS. CALL LIGHT WITHIN REACH. BED RAILS UP.
--- NOTE | 2022-03-07 09:13 | NUR ---
MORNING ASSESSMENT AND MEDICATION DUE. PT SITTING ON EDGE OF BED, FINISHED WITH BREAKFAST. PT REPORTS 3/10 PAIN IN RIGHT SHOULDER/ARM AND 2/10 PAIN IN STERNUM OF CHEST. PT ALERT AND ORIENTED TO ALL. STRENGTH WNL ALTHOUGH PT RECALLS MULTIPLS FALLS RECENTLY. PT PRAISES HER EFFORTS WITH PHYSICAL THERAPY YESTERDAY. PT CONTINUES TO REPORTS BASELINE NUBMNESS AND TINGLING IN HANDS AND FEET, UNCHANGED. LUNG SOUNDS CLEAR IN ALL LOBES. OXYGEN SATURATION ABOVE 94% ON ROOM AIR. PT DENEIS FEELINGS OF SHORTNESS OF BREATH. HEART MURMUR CONTINUES. PT UPDATED ON HER INR LEVEL. SWELLING IN BLE IMPROVING, NOW +1 PITTING EDEMA FROM KNEES TO ANKLES. NO PITTING EDEMA NOTED IN ABOMDEN OR UPPER LEGS. ABDOMEN SOFT. MICONAZOLE POWDER APPLIED UNDER PANNUS, REDNESS MINIMAL. BRUISES CONTINUE TO RIGHT UPPER AND LOWER ARM. YELLOWING NOTED AROUND EDGES. ASPER CREAM APPLIED PER PT REQUEST. PT DENIES ADDITONAL REQUESTS OR COMPLAINTS. CALL LIGHT WITHIN REACH. BED RAILS UP.
--- NOTE | 2022-03-07 10:01 | NUR ---
THIS RN TO ROOM TO CHECK ON PT. NEW MEDICATION ORDERS DUE. PT REMAINS UP TO CHAIR WORKING WITH PHYSICAL THERAPY. PT DENEIS PAIN AND NAUSEA. MEDICAITON GIVEN (SEE MAR). PT UPDATED ON PLAN OF CARE. NO ADDITIONAL NEEDS AT THIS TIME. CALL LIGHT WITHIN REACH.
--- NOTE | 2022-03-07 10:43 | NUR ---
THIS RN TO ROOM TO CHECK ON PT. PT RESTING IN BED WATCHING TV. PT REPORTS HER PAIN IS WELL CONTROLLED. HAT EMPITED OF 325ML OF CONCENTRATED YELLOW URINE. PT DENIES ADDITIONAL REQUESTS OR COMPLAINTS. CALL LIGHT WITHIN REACH. BED RAILS UP.
--- NOTE | 2022-03-07 11:55 | NUR ---
THIS RN TO ROOM TO CHECK ON PT. PT SITTING ON EDGE OF BED EATING LUNCH. PT REPORTS 2/10 PAIN IN RIGHT ARM/SHOULDER. PT DENIES CHEST PAIN BUT STATES "WHEN I MOVE MY ARM I CAN FEEL IT IN MY CHEST A BIT LIKE THE TWO ARE CONNECTED." PT REPORTS "PEEING A LOT." PT DENIES DIZZINESS BUT REPORTS FEELIGN "REALLY TIRED TODAY." PT UPDATED ON PLAN OF CARE. PT DENIES ADDITONAL REQUESTS OR COMPLAINTS. CALL LIGHT WITHIN REACH.
--- NOTE | 2022-03-07 12:14 | NUR ---
PT SITTING IN CHAIR, MENTIONED SHE HAD HOPED TO DC TODAY, BUT DR FOWLER FEELS HER LABS SHOW SOME CONCERN. SHE WILL TRUST STAFF JUDGEMENT. AGAIN EXPRESSED SHE IS PLEASED WITH CARE. GAVE BLESSING AND WILL FOLLOW
--- NOTE | 2022-03-07 13:07 | NUR ---
AFTERNOON ASSESSMENT DUE. THIS RN TO ROOM TO CHECK ON PT. PT CONTINUES RESTING ON LEFT SIDE IN BED. PT REPORTS PAIN IS IMPROVING IN LLQ OF ABDOMEN AND "WAS BETTER WITH REST BUT THEN WORSE WITH MY BOWEL MOVEMENT." PT REPORTS 3/10 PAIN IN LEFT LOWER QUADRANT. PT DENIES NEED FOR ADDTIONAL PAIN MEDICATION AT THIS TIME. PT DENIES NASUEA. PT ALERT AND OREINTED TO ALL. HEART TONES REGULAR. LUNG SOUNDS CLEAR. NUMBNESS TO LLE CONTINUES PER PT BASELINE. +1 PITTING EDEMA NOTED IN LLE WELL. PT STATES "YEAH MY LEFT LEG IS USUALY ABOUT AN INCH BEGGER THAN THE RIGHT." ABDOMEN REMAINS SOFT. MILDY DISTENDED PER PT. BOWEL TONES ACTIVE BUT HYPOACTIVE IN LLQ. ABDOMEN REMAINS TENDER IN LLQ WITH PALPATION. PT VOIDING LARGE AMOUNTS OF CLEAR YELLOW URINE. VITAL SIGNS STABLE. REDNESS NOTED UNDER PANNUS. BARRIER CREAM APPLIED. ICE WATER PROVIDED. PT UPDATED ON PLAN OF CARE. NO ADDITONAL REQUESTS OR COMPLAINTS. CALL LIGHT WITHIN REACH. AT BEDSIDE.
--- NOTE | 2022-03-07 13:49 | NUR ---
AFTERNOON ASSESSMENT AND MEDICATION DUE. PT RESTING IN BED. PT REPORTS 2/10 CHEST/STERNAL PAIN "SOMETIMES BUT IT'S NOT REALLY BOTHERING ME." PT REPORTS CLIMBING 4/10 RIGHT SHOUDLER/ARM PAIN. PT DECLINES OXYCODONE AND REQUESTS TO WAIT UNTIL ASPERCREAM IS DUE. PT ADVISED TO CALL NURSING STAFF IF PAIN BECOMES INTOLEARABLE. PT INDEPENDANT UP TO RESTROOM, PT STEADY ON FEET WITH FOUR WHEEL WALKER, NO ASSISTANCE NEEDED. PT REPORTS VOIDING "A LOT MORE TODAY." PT REPORTS UNCHANGED NEUROPATHY AND STATES HER LEFGS ARE NUMB UP TO MID CALF AND HANDS TO MIDDLE OF WRISTS. PT STATES SHE RECENTLY BURNED HER FINGER TAKING SOMETHING OUT OF THE OVEN AND DIDNT' FEEL THE PAIN "UNTIL IT HAD BLISTERED." LUNG SOUNDS CLEAR. PT DENIES SHORTNESS OF BREATH AND IS ABLE TO TELL STORIES WITHOUT STOPPING TO CATCH HER BREATH. HEART TONES UNCHANGED. +1 PITTING EDEMA TO BLE CONTINUES. NO PITTING EDEMA NOTED TO UPPER LEGS OR ABDOMEN. BOWEL TONES ACTIVE. ABDOMEN WNL, REDENES UNDER PANNUS IMPROVING. BRUISES UNCHANGED. RED/YELLOW/GREEN ZONES OF HEART FAILURE REIEWED WITH PT. PT DEMOSNRATES UNDERSTANDING STATING SHE IS IN THE "YELLOW" ZONE TODAY "BECAUSE OF THE EDEMA." PT VERBALIZES UNDERSTANDING OF DAILY WEIGHTS. NO ADDITIONAL NEEDS AT THIS TIME. CALL LIGHT WITHIN REACH. BED RAILS UP.
--- NOTE | 2022-03-07 15:20 | NUR ---
THIS RN TO ROOM TO CHECK ON PT. PT WATCHING TV. PT REPORTS 4/10 PAIN IN RIGHT SHOULDER AND RIGHT ARM. ASPERCREME APPLIED. PT ENCOURAGED TO AMBULATE, PT DECLINES AT THIS TIME. NO ADDITIONAL REQUESTS OR COMPLAINTS AT THIS TIME. CALL LIGHT WTHIN REACH. BED RAILS UP.
--- NOTE | 2022-03-07 15:54 | NUR ---
PT HERE FOR CHF EXACERBATION. PT UP IN ROOM WITH STAND BY ASSIST TO INDEPENDANT. PT STEADY ON FEET WITH FOUR WHEEL WALKER. PT TOLERATING 2 GRAM SODIUM DIET WITH 1600ML FLUID RESTRICTION WITH GOOD APPITITE. IV LASIX GIVEN THIS SHIFT WITH GOOD RESPONSE. +1 PITTING EDEMA NOTED IN BLE, IMPROVING. LUNG SOUNDS CLEAR. PT PARTICIPATING IN PHYSICAL THERAPY THIS SHIFT. BRUSING CONTINUES OVER RIGHT ARM WITH ASPERCREME APPLIED, PAIN WELL CONTROLLED THIS SHIFT. MICONAZOLE POWDER APPLIED UNDER PANNUS, REDNESS IMPROVING. CPAP AVALIABLE FOR TELEPHONE ADVICE NURSE, PT USES INTERMITTANTLY. PT DEMONSTRATES UNDERSTANDING OF GREEN/YELLOW/RED ZONES OF HEART FAILURE BY STATING SHE IS IN THE YELLOW ZONE THIS SHIFT. PT USES CALL LIGHT AND MAKES NEEDS KNOWN.
--- NOTE | 2022-03-07 16:30 | NUR ---
THIS RN TO ROOM TO CHECK ON PT. PT UP TO CHAIR LOOKING OUT THE WINDOW. PT REPORTS CHEST PAIN IS "GONE" 0/10. PT REPORTS 3/10 PAIN IN RIGHT SHOULDER STATING THE ASPERCREME HELPED. MEDICATIONS REVIEWED AND GIVEN. DR. FOWLER TO BEDSIDE FOR ROUNDS. PT UPDATED ON PLAN OF CARE AND VERBALIZES UNDERSTANDING. PT UP TO RESTROOM INDEPENATNLY. PT PERFORMS SELF PER CARE. PT DENIES ADDITONAL REQUESTS OR COMPLAINTS. CALL LIGHT WITHIN REACH.
--- NOTE | 2022-03-07 16:40 | NUR ---
THIS RN TO ROOM TO CHECK ON PT. DR. SARGENT TO BEDSIDE FOR ROUNDS. PLAN FOR SURGERY DISCUSSED WITH PT AND PTS MOTHER BY DR. SARGENT. PT AND MOTHER VERBALIZE UNDERSTANDING OF PROCEEDURE AND STATE THEIR QUESITONS HAVE BEEN ANSWERED. PT CONTINUES RESTING ON COUCH. DENIES PAIN OR NAUSEA. NO ADDITIONAL NEEDS AT THIS TIME. CALL LIGHT WIHTIN REACH.
--- NOTE | 2022-03-07 17:21 | NUR ---
MEDICATION ORDERED. GIVEN ORDERED. PROCEEDURE AND PLAN OF CARE REVEIWED WITH PT IN DETAIL. GREATHER THAN 30 MINUTES SPENT WITH PT ANSERING QUESTIONS AND CLARIFYING WHAT MD HAD TO SAY. PT VERBALIZE UNDERSTANDING AND STATES HER QUESTIONS HAVE BEEN ANSWERED. PT TALKIGN WITH FAMILY ON PHONE. PT DENIES PAIN AND NAUSEA. NO ADDITONAL REQUESTS OR COMPLAINTS. CALL LIGHT WIHTIN REACH.
--- NOTE | 2022-03-07 18:00 | NUR ---
THIS RN TO ROOM TO CHECK ON PT. PT WORKIGN WITH MOBILE PRACTICE LEAD'S AND VISITING WITH HER FRIEND. PT REPORTS 4/10 PAIN IN RIGHT ARM AND STATES SHE WOULD LIKE PAIN MEDICATION "A LITTLE LATER." PT DENIES ADDITIONAL REQUESTS OR COMPLAINTS. CALL LIGHT WITHIN REACH.
--- NOTE | 2022-03-07 18:47 | NUR ---
THIS RN TO ROOM TO CHECK ON PT. PT REMAINS UP TO CHAIR VISITING WITH HER FRIEND. PT REQUESTS PAIN MEDICATION FOR 6/10 PAIN IN RIGHT ARM/SHOULDER. PT DENIES CHEST/STERNAL PAIN. SEE MAR FOR MEDICATION GIVEN. PT DENEIS SHORNESS OF BREATH OR ADDITIONAL COMPLAINTS. CALL LIGHT WITHIN REACH. BED RAILS UP. FRIEND AT BEDSIDE.
--- NOTE | 2022-03-07 19:34 | NUR ---
PROVIDED PT. WITH FRESH ICE PACK. CALL LIGHT LEFT WITHIN REACH. NO OTHER IMMEDIATE NEEDS AT THIS TIME.
--- NOTE | 2022-03-07 20:33 | NUR ---
PT. VITALS AND I/OS CHARTED. FRESH NOC 250 ML ICE WATER PROVIDED. ROOM TIDIED. CALL LIGHT LEFT WITHIN REACH. NO OTHER IMMEDIATE NEEDS AT THIS TIME.
--- NOTE | 2022-03-07 21:20 | NUR ---
ASSESSMENT COMPLETE, SCHEDULED EMDS GIVEN (SEE EMAR). pt DENIES PAIN AND NAUSEA. +1 EDEMA NOTED TO BLE UP TO KNEES. CMS INTACT, pt DENIES NUMBNESS AND TINGLING. REMAINING WATER FOR FLUID RESTRICTION PROVIDED. pt SBA/INDEPENDENT IN ROOM, CALLS APPROPRATELY. LUNG SOUNDS CLEAR, pt CASEY SOB AND CHEST PAIN. CALL LIGHT IN REACH, NO NEEDS OR CONCERNS VERBALIZED. WILL MONITOR FOR CHANGES.
--- NOTE | 2022-03-07 22:53 | NUR ---
ROUNDED ON pt, pt RESTING QUIETLY IN BED WITH EYES CLOSED ON CPAP MACHINE. NO DISTRESS NOTED, RR EVEN AND UNLABORED. WILL CONTINUE TO MONITOR, CALL LIGHT IN REACH.
--- NOTE | 2022-03-08 00:44 | NUR ---
IN ROOM TO ROUND ON pt, pt RESTING QUIETLY ON CPAP MACHINE. RR EVEN AND UNLABORED, NO DISTRESS NOTED. AWOKE BRIEFLY, DENIED NEEDS OR CONCERNS. CALL LIGHT IN REACH.
--- NOTE | 2022-03-08 04:04 | NUR ---
ROUNDED ON pt, pt RESTING QUIETLY IN BED. ON RA WITH CPAP MACHINE IN PLACE, SPO2 95%, HR 78. NO NEEDS OR CONCERNS VERBALIZED. CALL LIGHT IN REACH.
--- NOTE | 2022-03-08 05:45 | NUR ---
LAB IN PT ROOM THIS AM, THIS RN INTO ASSESS V/S, I/O, AND WT... PT UP TO BATHROOM TO VOID 450ML BARON COLORED URINE, THEN ON STANDING SCALE 112.4KG THIS AM. PT THEN TO SIT AT SIDE OF BED, SHE HAS NO FURHTER REQUESTS THIS AM, SHE VERBALIZED SHE IS EXCITED THAT SHE MAY BE ABLE TO DISCHARGE TODAY. PT ALERT AND ORIETNED HAS CALL LIGHT IN REACH
--- NOTE | 2022-03-08 06:23 | NUR ---
ASSESSMENT COMPLETE, SCHEDULED AM MEDS GIVEN (SEE EMAR). NO REPORT OF PAIN NOTED BY pt, pt APPEARS RELAXED AND CALM AT THIS TIME. FRESH WATER PROVIDED, CALL LIGHT IN REACH.
--- NOTE | 2022-03-08 07:55 | NUR ---
PT SITTING AT EDGE OF BED. FINSHED BREAKFAST TRAY (TAKEN) AND HAD REQUESTED WATER INSTEAD OF MILK. PT OFFERED WARM WASH CLOTH FOR FACE, REFUSED SHOWER AT THIS TIME UNTIL SHE FINDS OUT IF SHE GETS D/C'D TOAY. NO OTHER REQUESTS AT THIS TIME. CALL LIGHT IN REACH.
--- NOTE | 2022-03-08 08:20 | NUR ---
REPORT RECEIVED FROM NIGHT RN AND PT. CARE RESUMED. PT. IS ALERT AND ORIENTED TO ALL. SHE DENIES PAIN OR SOB. ASSESSMENT COMPLETED. +1 EDEMA PRESENT BLE. SHE DENIES WEAKNESS. DISCUSSED POC AND MEDS. PT. LEFT RESTING WITH CALL LIGHT IN REACH.
--- NOTE | 2022-03-08 11:34 | NUR ---
LASIX ADMINISTERED. PARTNER PRESENT AND REQUESTS TO TAKE PT. FOR A WALK. CHARGE NURSE UPDATED AND PT. LEFT BY WHEELCHAIR WITH PARTNER FOR A RIDE TO THE LOBBY.
--- NOTE | 2022-03-08 17:31 | NUR ---
PT RESTING IN THE CHAIR WITH LEGS ELEVATED. DENIES PAIN OR FURTHER NEEDS.
--- NOTE | 2022-03-08 18:25 | NUR ---
ROUNDING ON PT. PT. IS IN THE CHAIR ON THE PHONE. SHE DENIES NEEDS AT THIS TIME AND STATES "THE REAL ESTATE TRANSACTION MANAGER WAS JUST IN HERE"
--- NOTE | 2022-03-08 19:25 | NUR ---
SHIFT REPORT RECEIVED FROM DAYSHIFT RN DELORIS AT BEDSIDE. pt AWAKE AND RESTING IN BED, ON RA. RR EVEN AND UNLABORED, NO DISTRESS NOTED. NO NEEDS OR CONCERNS AT THIS TIME, CALL LIGHT IN REACH.
--- NOTE | 2022-03-08 20:43 | NUR ---
ASSESSMENT COMPLETE, SCHEDULED MEDS GIVEN (SEE EMAR). pt REPORTS TOLERABLE 5/10 PAIN, DENIES NEED FOR PAIN MEDICATION WHEN ASKED. IV SITE WNL, FLUSHES EASILY. CPAP MACHINE IN REACH AND AT BEDSIDE ALONG WITH OTHER BELONGINGS. NO ADDITIONAL NEEDS, CALL LIGHT IN REACH.
--- NOTE | 2022-03-08 21:32 | NUR ---
SCHEDULED THIAMINE MEDICATION GIVEN, SEE EMAR. NO ADDITIONAL NEEDS OR CONCERNS. CALL LIGHT IN REACH.
--- NOTE | 2022-03-09 00:08 | NUR ---
rounded on pt, pt resting quietly in bed with cpap machine in place. rr even and unlabored, call light in reach.
--- NOTE | 2022-03-09 02:20 | NUR ---
call light answered, prn pain medication given for reported 7/10 pain in right shoulder d/t fall at home. no acute changes, call light in reach. pt up to void with home walker- steady on feet and back to bed. no further needs, call light in reach.
--- NOTE | 2022-03-09 05:06 | NUR ---
rounded on pt, pt resting quietly in bed with eyes closed. cpap machine in place, call light in reach. rr even and unlabored, no distress noted.
--- NOTE | 2022-03-09 05:49 | NUR ---
VSS AND I&O'S COMPLETE. SCHEDULED AM MEDS GIVEN, SEE EMAR. FRESH ICE WATER, 300MLS PER FLUID RESTRICTION PROVIDED. CALL LIGHT IN REACH.
--- NOTE | 2022-03-09 07:41 | NUR ---
PT SITTING UP ON EDGE OF BED EATING MORNING MEAL. DENIES DISCOMFORTS OR NEEDS OF, INQUIRES ABOUT LAB RESULTS HOPING TO GO HOME TODAY.
--- NOTE | 2022-03-09 07:55 | NUR ---
patient sitting up on the edge of the bed waiting for breakfast. states she'll take a shower after the doctor talks to her. warm washcloth offered and not taken. call light with in reach. no further needs at this time.
--- NOTE | 2022-03-09 11:06 | NUR ---
PT HAS REMAINED UP ON EDGE OF BED THIS SHIFT WAITING FOR MD HOPING TO GO HOME. DENIES SOB, PAIN, OR CONCERNS. DISCUSSED CHF, LOW SALT DIET AND DISEASE PROCESS. PT REFUSES WRITTEN MATERIALS STATING SHE HAS TONS. AGREES SHE WILL RETURN TO LOW SALT DIET AND MONITOR WHEN SHE RETURNS HOME, SAYS SHE GOT COMPLACENT BUT KNOWS BETTER NOW.
[2022-03-09] MEDS ORDERED: ENOXAPARIN120 MG/0.8 SUB-Q (14:51)
[2022-03-09] MEDS ORDERED: WARFARIN SODIUM5 MG PO (14:51)
[2022-03-09] MEDS ORDERED: TORSEMIDE20 MG PO (14:52)
[2022-03-09] MEDS ORDERED: MAG-OXIDE400 MG PO (14:52)
[2022-03-09] MEDS ORDERED: SENNA LAX8.6 MG PO (14:53)
--- NOTE | 2022-03-09 15:28 | NUR ---
DR FOWLER IN TO SEE PT DC ORDERS RECEIVED. PT REPORTS HAVING TAKEN LUVONOX AT HOME FOR A COUPLE WEEKS PRIOR TO THIS VISIT STATES SHE IS "PERFECTLY COMFORTABLE" DOING THIS AT HOME HERSELF. DC INSTRUCTIONS PROVIDED UNDERSTANDING VERBALIZED. REMINDER FOR F/U APPT AND TRIP TO LAB GIVEN. PT DENIES QUESTIONS OR CONCERNS.
== END 2022-03-09 16:00 | disposition home or self-care (01) | DRG 291 ==
LOC: ED 17:54 → MS 20:24
PROVIDERS: ADMIT Internal Medicine; ATTEND Internal Medicine
DX: I11.0 Hypertensive heart disease with heart failure (principal); I50.33 Acute on chronic diastolic (congestive) heart failure; Z20.822 Contact with and (suspected) exposure to COVID-19; I27.20 Pulmonary hypertension, unspecified; K21.9 Gastro-esophageal reflux disease without esophagitis; E78.5 Hyperlipidemia, unspecified; I27.81 Cor pulmonale (chronic); I35.0 Nonrheumatic aortic (valve) stenosis; E87.6 Hypokalemia; E83.42 Hypomagnesemia; D53.9 Nutritional anemia, unspecified; I87.2 Venous insufficiency (chronic) (peripheral); K70.0 Alcoholic fatty liver; G47.33 Obstructive sleep apnea (adult) (pediatric); G89.4 Chronic pain syndrome; E79.0 Hyperuricemia without signs of inflammatory arthritis and tophaceous disease; M54.9 Dorsalgia, unspecified; M79.7 Fibromyalgia; M25.511 Pain in right shoulder; R29.6 Repeated falls; Z90.49 Acquired absence of other specified parts of digestive tract; Z87.891 Personal history of nicotine dependence; Z95.4 Presence of other heart-valve replacement; Z91.041 Radiographic dye allergy status; Z79.82 Long term (current) use of aspirin; Z79.899 Other long term (current) drug therapy
CPT/HCPCS: 36415; 71045; 71111; 80048; 80053; 82306; 83540; 83550; 83735; 83880; 84484; 85018; 85025; 85060; 85610; 87502; 93005; 93010; 93306; 96374; 96375; 97110; 97116; 97161; 97166; 97530; 97535; 99285-25; A9270; J1650; J1940; J3475; U0003

== ENCOUNTER 2022-03-12 10:35 | Emergency (ER) | payer MEDICARE, OTHER ==
[~2022-03-12] VITALS: Ht 162.6 cm; Wt 108.9 kg
[~2022-03-12 10:35] MED LIST changes: +AMITRIPTYLINE100 MG PO; +ENOXAPARIN120 MG/0.8 SUB-Q; +LEVOTHYROXINE150 MCG PO; +MAG-OXIDE400 MG PO; +SENNA LAX8.6 MG PO; +SOAANZ40 MG PO; +TORSEMIDE20 MG PO; +WARFARIN SODIUM5 MG PO
--- OUTSIDE RECORDS SUMMARY | 2022-03-12 10:36 | XMS ---
PreManage Notification: CHERELLE BOYER Security Apprise Counselor Events No recent Security Events currently on file CRITERIA MET - [facility] - 2 Visits in 30 Days CARE PROVIDERS There are no care providers on record at this time. Jamel has no Care Guidelines for this patient. Jorje VISIT COUNT (12 MO.) [address] [facility] TOTAL 3 NOTE: Visits indicate total known visits. ED/C VISIT TRACKING (12 MO.) 03/12/2022 10:[address] [facility] [place] TYPE: Emergency COMPLAINT: - TRAUMA ADULT 03/03/2022 17:55 [facility] [place] TYPE: Emergency COMPLAINT: - CHEST PAIN 05/03/2021 13:16 [facility] [place] TYPE: Emergency COMPLAINT: - FALL, R BACK SIDE PAIN INPATIENT VISIT TRACKING (12 MO.) 03/03/2022 20:24 [facility] [place] TYPE: Medical Surgical COMPLAINT: - CHF, COR PULMONALE DIAGNOSES: - Other extermination inspector (current) drug therapy - Nutritional anemia, unspecified - Obstructive sleep apnea (adult) (pediatric) - Pain in right shoulder - Personal history of nicotine dependence - Alcoholic fatty liver - Cor pulmonale (chronic) - Presence of other heart-valve replacement - Personal history of nicotine dependence - Hyperuricemia without signs of inflammatory arthritis and tophaceous disease - Other extermination inspector (current) drug therapy - Dorsalgia, unspecified - Hyperlipidemia, unspecified - half-way (current) use of aspirin - Pain in right shoulder - Nutritional anemia, unspecified - Pulmonary hypertension, unspecified - half-way (current) use of aspirin - Contact with and (suspected) exposure to COVID-19 - Nonrheumatic aortic (valve) stenosis - Alcoholic fatty liver - Hypertensive heart disease with heart failure - Hypokalemia - Fibromyalgia - Presence of other heart-valve replacement - Hyperuricemia without signs of inflammatory arthritis and tophaceous disease - Radiographic dye allergy status - Contact with and (suspected) exposure to COVID-19 - Acquired absence of other specified parts of digestive tract - Nonrheumatic aortic (valve) stenosis - Cor pulmonale (chronic) - Acquired absence of other specified parts of digestive tract - Radiographic dye allergy status - Hypertensive heart disease with heart failure - Hypomagnesemia - Heart failure, unspecified - Venous insufficiency (chronic) (peripheral) - Obstructive sleep apnea (adult) (pediatric) - Gastro-esophageal reflux disease without esophagitis - Acute on chronic diastolic (congestive) heart failure - Repeated falls - Hyperlipidemia, unspecified - Gastro-esophageal reflux disease without esophagitis - Hypomagnesemia - Chronic pain syndrome - Hypokalemia - Fibromyalgia - Acute on chronic diastolic (congestive) heart failure - Repeated falls - Chronic pain syndrome - Venous insufficiency (chronic) (peripheral) - Dorsalgia, unspecified - Pulmonary hypertension, unspecified 05/03/2021 19:05 [facility] [place] TYPE: Medical Surgical COMPLAINT: - ANEMIA DIAGNOSES: - terminal system operator (current) use of anticoagulants - Unspecified fracture of T11-T12 vertebra, initial encounter for closed fracture - Type 2 diabetes mellitus with diabetic chronic kidney disease - Enterococcus as the cause of diseases classified elsewhere - Other extermination inspector (current) drug therapy - Presence of prosthetic heart valve - Fibromyalgia - Unspecified place in hospital as the place of occurrence of the external cause - Repeated falls - Acquired absence of other specified parts of digestive tract - Chronic kidney disease, unspecified - Obstructive sleep apnea (adult) (pediatric) - Tubal ligation status - Unspecified place in hospital as the place of occurrence of the external cause - Radiographic dye allergy status - Adverse effect of tricyclic antidepressants, initial encounter - Chronic diastolic (congestive) heart failure - Type 2 diabetes mellitus with diabetic polyneuropathy - Acute and subacute hepatic failure without coma - Hyperlipidemia, unspecified - Other abnormalities of gait and mobility - Gastro-esophageal reflux disease without esophagitis - half-way (current) use of anticoagulants - Obstructive sleep apnea (adult) (pediatric) - Acute kidney failure, unspecified - Enterococcus as the cause of diseases classified elsewhere - Gastro-esophageal reflux disease without esophagitis - Acute posthemorrhagic anemia - Chronic pain syndrome - Chronic pain syndrome - Unspecified Escherichia coli [E. coli] as the cause of diseases classified elsewhere - half-way (current) use of oral hypoglycemic drugs - Personal history of nicotine dependence - Hyperlipidemia, unspecified - Chronic kidney disease, unspecified - Type 2 diabetes mellitus with diabetic chronic kidney disease - Hypertensive heart and chronic kidney disease with heart failure and stage 1 through stage 4 chronic kidney disease, or unspecified chronic kidney disease - Other abnormalities of gait and mobility - Personal history of nicotine dependence - Radiographic dye allergy status - Urinary tract infection, site not specified - Fibromyalgia - Fatty (change of) liver, not elsewhere classified - Disorientation, unspecified - Pulmonary hypertension, unspecified - Acquired absence of other specified parts of digestive tract - Repeated falls - Unspecified fracture of T11-T12 vertebra, initial encounter for closed fracture - Acute kidney failure, unspecified - Contusion of right hip, initial encounter - Presence of prosthetic heart valve - terminal system operator (current) use of oral hypoglycemic drugs - half-way (current) use of aspirin - Fatty (change of) liver, not elsewhere classified - Chronic diastolic (congestive) heart failure - Pulmonary hypertension, unspecified - Other specified postprocedural states - Hypothyroidism, unspecified - Acute and subacute hepatic failure without coma - terminal system operator (current) use of aspirin - Adverse effect of tricyclic antidepressants, initial encounter - Fall on same level, unspecified, initial encounter - Contusion of right hip, initial encounter - Other specified postprocedural states - Urinary tract infection, site not specified - Other extermination inspector (current) drug therapy - Hypertensive heart and chronic kidney disease with heart failure and stage 1 through stage 4 chronic kidney disease, or unspecified chronic kidney disease - Type 2 diabetes mellitus with diabetic polyneuropathy - Unspecified Escherichia coli [E. coli] as the cause of diseases classified elsewhere - Hypothyroidism, unspecified - Disorientation, unspecified - Tubal ligation status - Fall on same level, unspecified, initial encounter [email or web address]
--- NOTE | 2022-03-12 12:47 | EKG ---
[facility] [address] [place] [address] Signed Normal sinus rhythm Nonspecific intraventricular block Abnormal ECG No previous ECGs available Confirmed by KELIN KRISHNAN MD ([id number]) on 03/12/2022 12:47:11 PM Electronically Signed By: KELIN KRISHNAN MD 03/12/22 1247 PATIENT NAME: MERLINCHERELLE J Electrocardiogram DATE OF : 51 PHYSICIAN: KELIN KRISHNAN MD REPORT #: [id number] REPORT IS CONFIDENTIAL AND NOT TO BE RELEASED WITHOUT AUTHORIZATION
== END 2022-03-12 15:10 | disposition short-term general hospital (02) ==
LOC: ED 10:35
DX: D50.0 Iron deficiency anemia secondary to blood loss (chronic) (principal); E86.0 Dehydration; D68.32 Hemorrhagic disorder due to extrinsic circulating anticoagulants; I11.0 Hypertensive heart disease with heart failure; E11.9 Type 2 diabetes mellitus without complications; I50.9 Heart failure, unspecified; Z79.899 Other long term (current) drug therapy; Z87.891 Personal history of nicotine dependence; Z79.01 Long term (current) use of anticoagulants; Z20.822 Contact with and (suspected) exposure to COVID-19
CPT/HCPCS: 36415; 36430; 70450; 71045; 71250; 72125; 74176; 80053; 81001; 83735; 83880; 84484; 85025; 85060; 85379; 85610; 85730; 86850; 86900; 86901; 86922; 87502; 93005; 93010; 96361; 96365; 99285-25; A9270; C9803; G0480; J3430; J7040; P9016; U0003

== ENCOUNTER 2022-04-18 12:15 | Emergency (ER) | payer MEDICARE, OTHER ==
[~2022-04-18] VITALS: Ht 162.6 cm; Wt 108.9 kg
--- NOTE | 2022-04-18 15:30 | EKG ---
[facility] [address] [facility] [place] [address] Signed Normal sinus rhythm Possible Left atrial enlargement Left ventricular hypertrophy with QRS widening and repolarization abnormality ( R in aVL , Keith product ) Abnormal ECG When compared with ECG of 12-MAR-2022 10:35, Nonspecific T wave abnormality now evident in Anterior leads Confirmed by NICOLA FOWLER MD ([id number]) on 04/18/2022 3:30:14 PM Electronically Signed By: NICOLA FOWLER MD 04/18/22 1530 PATIENT NAME: MERLINCHERELLE Electrocardiogram DATE OF : 51 PHYSICIAN: NICOLA FOWLER MD REPORT #: [id number] REPORT IS CONFIDENTIAL AND NOT TO BE RELEASED WITHOUT AUTHORIZATION
[2022-04-18] MEDS ORDERED: OMEPRAZOLE20 MG PO (17:25)
== END 2022-04-18 18:30 | disposition home or self-care (01) ==
LOC: ED 12:15
DX: M79.81 Nontraumatic hematoma of soft tissue (principal); K21.9 Gastro-esophageal reflux disease without esophagitis; R63.0 Anorexia; E83.42 Hypomagnesemia; I11.0 Hypertensive heart disease with heart failure; I50.9 Heart failure, unspecified; E11.9 Type 2 diabetes mellitus without complications; Z79.01 Long term (current) use of anticoagulants; Z87.891 Personal history of nicotine dependence; Z79.899 Other long term (current) drug therapy
CPT/HCPCS: 36415; 74176; 80053; 81001; 82140; 83690; 83735; 84484; 85025; 85610; 85730; 93005; 93010; 96365; 96375; 99284-25; C9113; J2405; J3475

== ENCOUNTER 2022-07-03 10:33 | Emergency (ER) | payer MEDICARE, OTHER ==
[~2022-07-03] VITALS: Ht 162.6 cm; Wt 93.4 kg
[2022-07-03] MEDS ORDERED: HYDROXYZINE HCL10 MG PO (12:24)
[2022-07-03] MEDS ORDERED: OXYCODONE HCL5 MG PO (15:53)
[2022-07-03] MEDS ORDERED: CEPHALEXIN500 MG PO (15:59)
== END 2022-07-03 17:00 | disposition home or self-care (01) ==
LOC: ED 10:33
DX: L03.311 Cellulitis of abdominal wall (principal); E87.6 Hypokalemia; M79.81 Nontraumatic hematoma of soft tissue; I11.0 Hypertensive heart disease with heart failure; I50.9 Heart failure, unspecified; E11.9 Type 2 diabetes mellitus without complications; Z87.891 Personal history of nicotine dependence; Z91.041 Radiographic dye allergy status; Z79.899 Other long term (current) drug therapy; Z79.01 Long term (current) use of anticoagulants
CPT/HCPCS: 36415; 74018; 80053; 81001; 83605; 85025; 87088; 96365; 96367; 99284-25; A9270; J0696; J3480

== ENCOUNTER 2022-10-17 00:47 | Emergency (ER) | payer MEDICARE, OTHER ==
[~2022-10-17] VITALS: Ht 162.6 cm; Wt 90.7 kg
[~2022-10-17 00:47] MED LIST changes: +CEPHALEXIN500 MG PO; +HYDROXYZINE HCL10 MG PO; +OXYCODONE HCL5 MG PO
--- OUTSIDE RECORDS SUMMARY | 2022-10-17 00:50 | XMS ---
PreManage Notification: CHERELLE BOYER Security Information Security Risk Analyst Events No recent Security Events currently on file CRITERIA MET - [facility] CARE PROVIDERS There are no care providers on record at this time. Jamel has no Care Guidelines for this patient. Jorje VISIT COUNT (12 MO.) 1 [facility] 5 [facility] [place] TOTAL 6 NOTE: Visits indicate total known visits. ED/C VISIT TRACKING (12 MO.) 10/17/2022 00:48 [facility] [place] TYPE: Emergency COMPLAINT: - LT LOWER LEG PAIN 07/03/2022 10:33 [facility] [place] TYPE: Emergency COMPLAINT: - ABD SWELLING DIAGNOSES: - Heart failure, unspecified - Personal history of nicotine dependence - Type 2 diabetes mellitus without complications - Radiographic dye allergy status - Cellulitis of abdominal wall - Lower abdominal pain, unspecified - Hypertensive heart disease with heart failure - Nontraumatic hematoma of soft tissue - senior care (current) use of anticoagulants - Hypokalemia - Other senior care (current) drug therapy 04/18/2022 12:16 [facility] [place] TYPE: Emergency COMPLAINT: - VOMITING DIAGNOSES: - Gastro-esophageal reflux disease without esophagitis - Heart failure, unspecified - Type 2 diabetes mellitus without complications - Anorexia - Personal history of nicotine dependence - Nontraumatic hematoma of soft tissue - Hypertensive heart disease with heart failure - Dizziness and giddiness - Other long term acute care registered nurse (current) drug therapy - Hypomagnesemia - senior care (current) use of anticoagulants 03/12/2022 16:38 [facility] TYPE: Emergency DIAGNOSES: 94807. T12 fx, Anemia, Hypertension 03/12/2022 10:35 [facility] [place] TYPE: Emergency COMPLAINT: - TRAUMA ADULT DIAGNOSES: - Other long term acute care registered nurse (current) drug therapy - senior care (current) use of anticoagulants - Hemorrhagic disorder due to extrinsic circulating anticoagulants - Heart failure, unspecified - Personal history of nicotine dependence - Syncope and collapse - Dehydration - Type 2 diabetes mellitus without complications - Iron deficiency anemia secondary to blood loss (chronic) - Contact with and (suspected) exposure to COVID-19 - Hypertensive heart disease with heart failure 03/03/2022 17:55 [facility] [place] TYPE: Emergency COMPLAINT: - CHEST PAIN INPATIENT VISIT TRACKING (12 MO.) 03/12/2022 16:38 [facility] TYPE: Nephrology DIAGNOSES: 53510. Injury, unspecified, initial encounter 29327. GLF 20072. Acute embolism and thrombosis of right peroneal vein 18413. Unspecified injury of abdomen, initial encounter 05347. Wedge compression fracture of T11-T12 vertebra, initial encounter for closed fracture 23689. Injury, unspecified, initial encounter 45448. Fibromyalgia 03/03/2022 20:[address] [facility] [place] TYPE: Medical Surgical COMPLAINT: - CHF, COR PULMONALE DIAGNOSES: - Acquired absence of other specified parts of digestive tract - Acute on chronic diastolic (congestive) heart failure - Other long term acute care registered nurse (current) drug therapy - Radiographic dye allergy status - Gastro-esophageal reflux disease without esophagitis - Nutritional anemia, unspecified - vermin exterminator (current) use of aspirin - Nonrheumatic aortic (valve) stenosis - Hypokalemia - Personal history of nicotine dependence - Presence of other heart-valve replacement - Venous insufficiency (chronic) (peripheral) - Pulmonary hypertension, unspecified - Nutritional anemia, unspecified - Repeated falls - Hypomagnesemia - Cor pulmonale (chronic) - Hypokalemia - Hypomagnesemia - Venous insufficiency (chronic) (peripheral) - senior care (current) use of aspirin - Hyperlipidemia, unspecified - Personal history of nicotine dependence - Alcoholic fatty liver - Radiographic dye allergy status - Repeated falls - Dorsalgia, unspecified - Acute on chronic diastolic (congestive) heart failure - Obstructive sleep apnea (adult) (pediatric) - Contact with and (suspected) exposure to COVID-19 - Cor pulmonale (chronic) - Fibromyalgia - Hyperuricemia without signs of inflammatory arthritis and tophaceous disease - Hyperuricemia without signs of inflammatory arthritis and tophaceous disease - Obstructive sleep apnea (adult) (pediatric) - Pain in right shoulder - Pulmonary hypertension, unspecified - Acquired absence of other specified parts of digestive tract - Chronic pain syndrome - Presence of other heart-valve replacement - Fibromyalgia - Heart failure, unspecified - Dorsalgia, unspecified - Other senior care (current) drug therapy - Gastro-esophageal reflux disease without esophagitis - Alcoholic fatty liver - Hypertensive heart disease with heart failure - Hypertensive heart disease with heart failure - Chronic pain syndrome - Hyperlipidemia, unspecified - Contact with and (suspected) exposure to COVID-19 - Pain in right shoulder - Nonrheumatic aortic (valve) stenosis [email or web address]
== END 2022-10-17 02:39 | disposition home or self-care (01) ==
LOC: ED 00:47
DX: M79.7 Fibromyalgia (principal); I11.0 Hypertensive heart disease with heart failure; I50.9 Heart failure, unspecified; G47.30 Sleep apnea, unspecified; E11.40 Type 2 diabetes mellitus with diabetic neuropathy, unspecified; Z87.891 Personal history of nicotine dependence; Z79.899 Other long term (current) drug therapy; Z79.01 Long term (current) use of anticoagulants
CPT/HCPCS: 93971; 99283-25

== ENCOUNTER 2022-10-26 11:58 | Emergency (ER) | payer MEDICARE, OTHER ==
[~2022-10-26] VITALS: Ht 162.6 cm; Wt 90.3 kg
--- OUTSIDE RECORDS SUMMARY | 2022-10-26 12:00 | XMS ---
PreManage Notification: CHERELLE BOYER Security Manager Code Events No recent Security Events currently on file CRITERIA MET - [facility] - 2 Visits in 30 Days - [facility] CARE PROVIDERS There are no care providers on record at this time. Jamel has no Care Guidelines for this patient. EBrandtDBrandt VISIT COUNT (12 MO.) 1 [facility] [address] [facility] TOTAL 7 NOTE: Visits indicate total known visits. ED/C VISIT TRACKING (12 MO.) [facility] COMPLAINT: - EXTREMITY PAIN/INJURY 10/17/2022 00:48 [facility] TYPE: Emergency COMPLAINT: - LT LOWER LEG PAIN DIAGNOSES: - MCC (current) use of anticoagulants - Heart failure, unspecified - Personal history of nicotine dependence - Other intermission coordinator (current) drug therapy - Sleep apnea, unspecified - Pain in left knee - Hypertensive heart disease with heart failure - Fibromyalgia - Type 2 diabetes mellitus with diabetic neuropathy, unspecified 07/03/2022 10:33 [facility] TYPE: Emergency COMPLAINT: - ABD SWELLING DIAGNOSES: - Personal history of nicotine dependence - Type 2 diabetes mellitus without complications - Radiographic dye allergy status - Cellulitis of abdominal wall - Lower abdominal pain, unspecified - Hypertensive heart disease with heart failure - Nontraumatic hematoma of soft tissue - roasterman (current) use of anticoagulants - Hypokalemia - Other intermission coordinator (current) drug therapy - Heart failure, unspecified 04/18/2022 12:16 [facility] TYPE: Emergency COMPLAINT: - VOMITING DIAGNOSES: - Gastro-esophageal reflux disease without esophagitis - Heart failure, unspecified - Type 2 diabetes mellitus without complications - Anorexia - Personal history of nicotine dependence - Nontraumatic hematoma of soft tissue - Hypertensive heart disease with heart failure - Dizziness and giddiness - Other intermission coordinator (current) drug therapy - Hypomagnesemia - MCC (current) use of anticoagulants 03/12/2022 16:38 [facility] TYPE: Emergency DIAGNOSES: 84074. T12 fx, Anemia, Hypertension 03/12/2022 10:35 [facility] [place] TYPE: Emergency COMPLAINT: - TRAUMA ADULT DIAGNOSES: - roasterman (current) use of anticoagulants - Hemorrhagic disorder due to extrinsic circulating anticoagulants - Heart failure, unspecified - Personal history of nicotine dependence - Syncope and collapse - Dehydration - Type 2 diabetes mellitus without complications - Iron deficiency anemia secondary to blood loss (chronic) - Contact with and (suspected) exposure to COVID-19 - Hypertensive heart disease with heart failure - Other custodial (current) drug therapy 03/03/2022 17:55 [facility] TYPE: Emergency COMPLAINT: - CHEST PAIN INPATIENT VISIT TRACKING (12 MO.) 03/12/2022 16:38 [facility] TYPE: Nephrology DIAGNOSES: 33765. Injury, unspecified, initial encounter 52605. GLF 63795. Acute embolism and thrombosis of right peroneal vein 83180. Unspecified injury of abdomen, initial encounter 65224. Wedge compression fracture of T11-T12 vertebra, initial encounter for closed fracture 88153. Injury, unspecified, initial encounter 95763. Fibromyalgia 03/03/2022 20:24 [facility] TYPE: Medical Surgical COMPLAINT: - CHF, COR PULMONALE DIAGNOSES: - MCC (current) use of aspirin - Gastro-esophageal reflux disease without esophagitis - Nutritional anemia, unspecified - Personal history of nicotine dependence - Presence of other heart-valve replacement - Nonrheumatic aortic (valve) stenosis - Hypokalemia - Nutritional anemia, unspecified - Venous insufficiency (chronic) (peripheral) - Pulmonary hypertension, unspecified - Hypokalemia - Repeated falls - Hypomagnesemia - Cor pulmonale (chronic) - roasterman (current) use of aspirin - Hypomagnesemia - Venous insufficiency (chronic) (peripheral) - Alcoholic fatty liver - Hyperlipidemia, unspecified - Personal history of nicotine dependence - Dorsalgia, unspecified - Radiographic dye allergy status - Repeated falls - Contact with and (suspected) exposure to COVID-19 - Acute on chronic diastolic (congestive) heart failure - Obstructive sleep apnea (adult) (pediatric) - Hyperuricemia without signs of inflammatory arthritis and tophaceous disease - Hyperuricemia without signs of inflammatory arthritis and tophaceous disease - Cor pulmonale (chronic) - Fibromyalgia - Pulmonary hypertension, unspecified - Obstructive sleep apnea (adult) (pediatric) - Pain in right shoulder - Fibromyalgia - Acquired absence of other specified parts of digestive tract - Chronic pain syndrome - Presence of other heart-valve replacement - Other custodial (current) drug therapy - Heart failure, unspecified - Dorsalgia, unspecified - Hypertensive heart disease with heart failure - Gastro-esophageal reflux disease without esophagitis - Alcoholic fatty liver - Hyperlipidemia, unspecified - Hypertensive heart disease with heart failure - Chronic pain syndrome - Nonrheumatic aortic (valve) stenosis - Contact with and (suspected) exposure to COVID-19 - Pain in right shoulder - Other custodial (current) drug therapy - Radiographic dye allergy status - Acquired absence of other specified parts of digestive tract - Acute on chronic diastolic (congestive) heart failure [email or web address]
[2022-10-26] MEDS ORDERED: COLCHICINE0.6 M1 PO (15:04)
[2022-10-26] MEDS ORDERED: MEDROL4 M1 PO (15:04)
== END 2022-10-26 15:25 | disposition home or self-care (01) ==
LOC: ED 11:58
DX: M17.12 Unilateral primary osteoarthritis, left knee (principal); I11.0 Hypertensive heart disease with heart failure; I50.9 Heart failure, unspecified; G47.30 Sleep apnea, unspecified; E11.40 Type 2 diabetes mellitus with diabetic neuropathy, unspecified; Z87.891 Personal history of nicotine dependence; Z79.899 Other long term (current) drug therapy; Z91.041 Radiographic dye allergy status; Z79.01 Long term (current) use of anticoagulants
CPT/HCPCS: 73560; 99283-25

== ENCOUNTER 2023-07-16 08:38 | Emergency (ER) | payer MEDICARE, OTHER ==
[~2023-07-16] VITALS: Ht 162.6 cm; Wt 88.0 kg
[~2023-07-16 08:38] MED LIST changes: +BACTRIM DS TAB1 EACH PO; +COLCHICINE0.6 M1 PO; +MEDROL4 M1 PO
--- OUTSIDE RECORDS SUMMARY | 2023-07-16 08:44 | XMS ---
PreManage Notification: CHERELLE BOYER Security Brainer Events No recent Security Events currently on file CRITERIA MET - [facility] CARE PROVIDERS There are no care providers on record at this time. Jamel has no Care Guidelines for this patient. Jorje VISIT COUNT (12 MO.) 5 [facility] TOTAL 6 NOTE: Visits indicate total known visits. ED/C VISIT TRACKING (12 MO.) 07/16/2023 08:38 [facility] TYPE: Emergency COMPLAINT: - L GROIN PAIN 04/11/2023 19:56 [facility] TYPE: Emergency COMPLAINT: - LOWER ABD WOUND CHECK DIAGNOSES: - Cellulitis of abdominal wall - Cutaneous abscess of abdominal wall - Heart failure, unspecified - skilled nursing (current) use of anticoagulants - Other senior living (current) drug therapy - Other specified postprocedural states - Personal history of nicotine dependence - Radiographic dye allergy status - Type 2 diabetes mellitus with diabetic neuropathy, unspecified 03/08/2023 16:26 [facility] TYPE: Emergency DIAGNOSES: - Contusion of abdominal wall, sequela - Medical Problem (Minor) 02/28/2023 18:51 [facility] [place] TYPE: Emergency COMPLAINT: - POST SURGERY INFECTION DIAGNOSES: - Cellulitis of abdominal wall - Heart failure, unspecified - Hormone replacement therapy - Hypertensive heart disease with heart failure - skilled nursing (current) use of anticoagulants - Other skin changes - Other surgical procedures as the cause of abnormal reaction of the patient, or of later complication, without mention of misadventure at the time of the procedure - Personal history of nicotine dependence - Postprocedural hematoma of skin and subcutaneous tissue following other procedure 10/26/2022 11:58 [facility] TYPE: Emergency COMPLAINT: - EXTREMITY PAIN/INJURY DIAGNOSES: - Heart failure, unspecified - Hypertensive heart disease with heart failure - skilled nursing (current) use of anticoagulants - Other terminologist (current) drug therapy - Pain in left knee - Personal history of nicotine dependence - Radiographic dye allergy status - Sleep apnea, unspecified - Type 2 diabetes mellitus with diabetic neuropathy, unspecified - Unilateral primary osteoarthritis, left knee 10/17/2022 00:48 [facility] TYPE: Emergency COMPLAINT: - LT LOWER LEG PAIN DIAGNOSES: - Fibromyalgia - Heart failure, unspecified - Hypertensive heart disease with heart failure - predatory animal exterminator (current) use of anticoagulants - Other terminologist (current) drug therapy - Pain in left knee - Pain in left leg - Personal history of nicotine dependence - Sleep apnea, unspecified - Type 2 diabetes mellitus with diabetic neuropathy, unspecified INPATIENT VISIT TRACKING (12 MO.) 03/01/2023 00:32 [facility] TYPE: Surgery DIAGNOSES: - Body mass index [BMI] 33.0-33.9, adult - Chronic diastolic (congestive) heart failure - Chronic kidney disease, unspecified - Contusion of abdominal wall, initial encounter - Contusion of abdominal wall, subsequent encounter - Disorder of kidney and ureter, unspecified - Disorder of thyroid, unspecified - Drug-induced obesity - Essential (primary) hypertension - Fibromyalgia - Local infection of the skin and subcutaneous tissue, unspecified - predatory animal exterminator (current) use of anticoagulants - Mild intermittent asthma, uncomplicated - Morbid (severe) obesity due to excess calories - Nonrheumatic aortic (valve) stenosis - Other injury of unspecified body region, initial encounter - Other specified depressive episodes - Other specified personal risk factors, not elsewhere classified - Paroxysmal atrial fibrillation - hematoma on abdomen 01/27/2023 15:56 [facility] TYPE: Surgery DIAGNOSES: 68198. Cutaneous abscess of abdominal wall 99118. ABDOMINAL HEMATOMA 22236. Cutaneous abscess of abdominal wall 06280. Presence of prosthetic heart valve [email or web address]
[2023-07-16 10:08] LABS: BASOPHILS 1.2 % (0-2); EOSINOPHILS 1.6 % (0-6); HEMATOCRIT 41.4 % (35.0-50.0); HEMOGLOBIN 13.4 g/dL (12.0-18.0); LYMPHOCYTES 9.3 % (24-44); MCH 30.2 (27-36); MCHC 32.4 g/dl (30-36); MCV 93.2 fl (81-99); MONOCYTES 6.8 % (0-12); NEUTROPHILS 81.1 % (39-80); PLATELET COUNT 171 K/uL (140-440); RBC 4.45 M/ul (4.3-5.7); RDW 14.6 (10.5-15.0)
[2023-07-16 10:17] LABS: INR 3.1 (0.80-1.30)
[2023-07-16 10:22] LABS: ALBUMIN 3.8 g/dL (3.4-5.0); ANION GAP 10.5 (7-21); BUN/CREATININE RATIO 30.52 (6.0-28.6); CALCIUM 9.4 mg/dL (8.5-10.1); CREATININE, SERUM 0.95 mg/dL (0.55-1.02); POTASSIUM 3.5 mmol/L (3.5-5.1); PROTEIN, TOTAL 7.6 g/dL (6.4-8.2)
[2023-07-16] MEDS ORDERED: GABAPENTIN600 MG PO (11:50)
[2023-07-16] MEDS ORDERED: ONDANSETRON ODT8 MG PO (11:50)
[2023-07-16] MEDS ORDERED: OXYCODONE HCL5 MG PO (11:50)
[2023-07-16 12:14] VITALS: BP 169/89
== END 2023-07-16 12:15 | disposition home or self-care (01) ==
LOC: ED 08:38
PROVIDERS: Emergency Medicine
DX: M25.052 Hemarthrosis, left hip (principal); I11.0 Hypertensive heart disease with heart failure; I50.9 Heart failure, unspecified; G47.30 Sleep apnea, unspecified; E11.40 Type 2 diabetes mellitus with diabetic neuropathy, unspecified; M10.9 Gout, unspecified; Z87.891 Personal history of nicotine dependence; Z79.899 Other long term (current) drug therapy; Z79.01 Long term (current) use of anticoagulants
CPT/HCPCS: 36415; 74176; 80053; 85025; 85610; 96374; 96375; 99284-25; J1170; J2405; J3010

== ENCOUNTER 2024-07-01 17:34 | Emergency (ER) | payer MEDICARE, OTHER ==
[~2024-07-01] VITALS: Ht 162.6 cm; Wt 104.4 kg
[~2024-07-01 17:34] MED LIST changes: +ATORVASTATIN CA10 MG PO; +ENOXAPARIN100 MG/1 M SUB-Q; +ONDANSETRON ODT8 MG PO
[2024-07-01] MEDS ORDERED: NITROGLYCERIN 0.4 MG SUBL SL PRN (17:45)
[2024-07-01] MEDS ORDERED: ASPIRIN 81 MG CHEW PO ONE (17:45)
[2024-07-01 18:01] LABS: BASOPHILS 0.7 % (0-2); EOSINOPHILS 3.5 % (0-6); HEMATOCRIT 34.8 % (35.0-50.0); HEMOGLOBIN 11.7 g/dL (12.0-18.0); LYMPHOCYTES 15.2 % (24-44); MCH 31.8 (27-36); MCHC 33.6 g/dl (30-36); MCV 94.5 fl (81-99); MONOCYTES 7.1 % (0-12); NEUTROPHILS 73.5 % (39-80); PLATELET COUNT 142 K/uL (140-440); RBC 3.68 M/ul (4.3-5.7); RDW 14.2 (10.5-15.0)
[2024-07-01 18:17] LABS: ALBUMIN 3.6 g/dL (3.4-5.0); ALBUMIN/GLOBULIN RATIO 0.95 (1.1-2.4); BILIRUBIN, TOTAL 0.5 ng/dL (0.2-1.0); BUN/CREATININE RATIO 23.18 (6.0-28.6); CALCIUM 9.3 mg/dL (8.5-10.1); CREATININE, SERUM 1.38 mg/dL (0.55-1.02); PROTEIN, TOTAL 7.4 g/dL (6.4-8.2)
[2024-07-01 18:29] LABS: INR 2.25 (0.80-1.30); PROTIME 24.5 Sec (11.2-14.2)
[2024-07-01 19:50] VITALS: BP 125/85
--- NOTE | 2024-07-01 21:53 | EKG ---
[facility] [address] [place] [address] Signed Atrial-sensed ventricular-paced rhythm Abnormal ECG When compared with ECG of 18-SEP-2023 17:35, No significant change was found Vent. rate has decreased Confirmed by Sherman Goyal MD () on 07/01/2024 9:53:02 PM Electronically Signed By: SHERMAN GOYAL MD 07/01/242152 PATIENT NAME: CHERELLE BOYER Electrocardiogram DATE OF : 51 PHYSICIAN: SHERMAN GOAYL MD REPORT #: [id number] REPORT IS CONFIDENTIAL AND NOT TO BE RELEASED WITHOUT AUTHORIZATION
== END 2024-07-01 19:50 | disposition home or self-care (01) ==
LOC: ED 17:34
PROVIDERS: Emergency Medicine
DX: R07.89 Other chest pain (principal); J44.9 Chronic obstructive pulmonary disease, unspecified; E11.9 Type 2 diabetes mellitus without complications; I50.9 Heart failure, unspecified; Z95.0 Presence of cardiac pacemaker; Z87.891 Personal history of nicotine dependence; Z79.899 Other long term (current) drug therapy; Z79.01 Long term (current) use of anticoagulants; Z79.890 Hormone replacement therapy
CPT/HCPCS: 36415; 71045; 80053; 83735; 84484; 85025; 85610; 93005; 93010; 99285-25; A9270

== ENCOUNTER 2024-09-30 21:36 | Emergency (ER) | payer MEDICARE, OTHER ==
[~2024-09-30] VITALS: Ht 162.6 cm; Wt 94.8 kg
[2024-09-30] MEDS ORDERED: ondansetron HCL 4 MG/2 ML VIAL IV ONE (22:00)
[2024-09-30 22:02] LABS: BASOPHILS 0.8 % (0-2); EOSINOPHILS 0.9 % (0-6); HEMOGLOBIN 12.1 g/dL (12.0-18.0); LYMPHOCYTES 6.3 % (24-44); MCHC 32.6 g/dl (30-36); MONOCYTES 7.6 % (0-12); NEUTROPHILS 84.4 % (39-80); PLATELET COUNT 141 K/uL (140-440); RDW 14.5 (10.5-15.0)
[2024-09-30 22:11] LABS: INR 2.07 (0.80-1.30); PROTIME 23.3 Sec (11.2-14.2)
[2024-09-30 22:22] LABS: ALBUMIN 3.4 g/dL (3.4-5.0); ALBUMIN/GLOBULIN RATIO 0.81 (1.1-2.4); ANION GAP 7.6 (7-21); BILIRUBIN, TOTAL 1.1 ng/dL (0.2-1.0); BUN/CREATININE RATIO 19.26 (6.0-28.6); CALCIUM 9.2 mg/dL (8.5-10.1); CREATININE, SERUM 1.09 mg/dL (0.55-1.02); POTASSIUM 3.6 mmol/L (3.5-5.1); PROTEIN, TOTAL 7.6 g/dL (6.4-8.2)
[2024-09-30 22:29] LABS: CORONAVIRUS COVID-19 AG NEGATIVE (NEGATIVE); INFLUENZA A AG NEGATIVE (NEGATIVE); INFLUENZA B AG NEGATIVE (NEGATIVE)
[2024-09-30] MEDS ORDERED: droPERidol 5 MG/2 ML VIAL IV ONE (22:45)
[2024-10-01] MEDS ORDERED: ONDANSETRON ODT8 MG PO (00:42)
[2024-10-01] MEDS ORDERED: TORSEMIDE20 MG PO (00:42)
[2024-10-01] MEDS ORDERED: PROMETHEGAN25 MG PR (00:42)
[2024-10-01] MEDS ORDERED: PROMETHAZINE HCL 25 MG SUPP. HOME.PACK PR ONE (00:45)
[2024-10-01] MEDS ORDERED: ONDANSETRON 4 MG HOME.PACK SL ONE (01:00)
[2024-10-01 01:07] VITALS: BP 163/80
== END 2024-10-01 01:07 | disposition home or self-care (01) ==
LOC: ED 21:36
PROVIDERS: Family Medicine
DX: A08.4 Viral intestinal infection, unspecified (principal); R77.8 Other specified abnormalities of plasma proteins; E11.40 Type 2 diabetes mellitus with diabetic neuropathy, unspecified; I50.30 Unspecified diastolic (congestive) heart failure; G47.30 Sleep apnea, unspecified; M10.9 Gout, unspecified; Z79.01 Long term (current) use of anticoagulants; Z87.891 Personal history of nicotine dependence; Z95.2 Presence of prosthetic heart valve; Z95.0 Presence of cardiac pacemaker; Z79.890 Hormone replacement therapy; Z79.899 Other long term (current) drug therapy
CPT/HCPCS: 36415; 71045; 74177; 80053; 83880; 85025; 85610; 96375; 99284-25; A9270; J1790; J2405